=== PATIENT | male | born 1945 | race Caucasian/White ===

== ENCOUNTER 2016-03-19 12:57 | Outpatient (CLI) | payer MEDICARE ==
[2016-03-19 13:32] LABS: INR-International Normal Ratio 1.9; Prothrombin Time 21.9 SEC (12.0-14.7)
== END 2016-03-19 12:58 | disposition home or self-care (01) ==
LOC: MADLABBHPM 12:57
PROVIDERS: ATTEND Family Medicine
DX: Z51.81 Encounter for therapeutic drug level monitoring (principal); Z79.01 Long term (current) use of anticoagulants; Z95.2 Presence of prosthetic heart valve
CPT/HCPCS: 36415; 85610

== ENCOUNTER 2016-03-24 09:44 | Outpatient (CLI) | payer MEDICARE ==
[2016-03-24 10:50] LABS: #Basophils 0.1 thou/uL (0.0-0.2); #Eosinphils 0.3 thou/uL (0.0-0.7); #Monocytes 0.8 thou/uL (0.11-0.59); #Neutrophils 4.7 thou/uL (1.40-6.50); %Basophils 0.9 % (0.0-1.0); %Eosinophils 3.6 % (0.0-10.0); %Lymphocytes 25.4 % (21.0-51.0); %Monocytes 10.4 % (0.0-10.0); %Neutrophils 59.7 % (42.0-75.0); Hemoglobin 12.6 g/dL (14.0-18.0); Mean Corpuscular HGB CONC 34.2 g/dL (32.0-36.0); Mean Corpuscular Hemoglobin 32.7 pg (27.0-31.0); Mean Corpuscular Volume 95.7 fl (80.0-94.0); Mean Platelet Volume 7.2 fL (7.4-10.4); Platelet Count 278 thou/uL (130-400); RBC Distribution Width 12.5 % (11.5-14.5); Red Blood Cell (RBC) Count 3.84 mill/uL (4.70-6.10); White Blood Cell (WBC) Count 7.8 thou/uL (4.8-10.8)
[2016-03-24 12:07] LABS: Anion Gap 17 mmol/L (10-20); Carbon Dioxide 25 mmol/L (23-31); Chloride 102 mmol/L (98-107); Potassium 4.5 mmol/L (3.5-5.1); Sodium 139 mmol/L (136-145)
[2016-03-24 12:08] LABS: ALT (SGPT) 16 U/L (0-55); AST (SGOT) 18 U/L (5-34); Albumin 3.9 g/dL (3.4-4.8); Alkaline Phosphatase 53 U/L (40-150); BUN (Urea Nitrogen) 13 mg/dL (8.4-25.7); Bilirubin, Direct 0.2 mg/dL (0.1-0.3); Bilirubin, Total 0.4 mg/dL (0.2-1.2); Calc. Creatinine Clearance 0 mL/min (70-130); Calcium 8.9 mg/dL (7.8-10.44); Cardiac Risk 4.3 (Less than 4.5); Cholesterol 243 mg/dL (< 200 Desired); Estimated GFR-MDRD 75; Globulin 2.4 g/dL (2.4-3.5); Glucose 103 mg/dL (80-115); HDL Cholesterol 56 mg/dL (>60 Neg Risk); LDL Cholesterol, Calculated 165 mg/dL; Protein, Total 6.3 g/dL (5.8-8.1); Triglycerides 112 mg/dL (Less than 150)
== END 2016-03-24 09:45 | disposition home or self-care (01) ==
LOC: MADLAB 09:44
PROVIDERS: ATTEND Internal Medicine Cardiovascular Disease
DX: E78.2 Mixed hyperlipidemia (principal)
CPT/HCPCS: 36415; 80053; 80061; 82248; 85025

== ENCOUNTER 2016-04-23 13:52 | Outpatient (CLI) | payer MEDICARE ==
[2016-04-23 14:16] LABS: INR-International Normal Ratio 2.5; Prothrombin Time 26.8 SEC (12.0-14.7)
== END 2016-04-23 13:53 | disposition home or self-care (01) ==
LOC: MADLABBHPM 13:52
PROVIDERS: ATTEND Family Medicine
DX: Z51.81 Encounter for therapeutic drug level monitoring (principal); Z79.01 Long term (current) use of anticoagulants; Z95.2 Presence of prosthetic heart valve
CPT/HCPCS: 36415; 85610

== ENCOUNTER 2016-05-20 12:05 | Outpatient (CLI) | payer MEDICARE ==
[2016-05-20 12:29] LABS: #Basophils 0.1 thou/uL (0.0-0.2); #Eosinphils 0.2 thou/uL (0.0-0.7); #Lymphocytes 1.3 thou/uL (1.20-3.40); #Monocytes 0.8 thou/uL (0.11-0.59); #Neutrophils 4.8 thou/uL (1.40-6.50); %Basophils 0.9 % (0.0-1.0); %Eosinophils 3.4 % (0.0-10.0); %Lymphocytes 18.6 % (21.0-51.0); %Monocytes 10.6 % (0.0-10.0); %Neutrophils 66.5 % (42.0-75.0); Hemoglobin 11.6 g/dL (14.0-18.0); Mean Corpuscular HGB CONC 32.8 g/dL (32.0-36.0); Mean Corpuscular Hemoglobin 29.1 pg (27.0-31.0); Mean Corpuscular Volume 88.7 fl (80.0-94.0); Mean Platelet Volume 7.4 fL (7.4-10.4); Platelet Count 244 thou/uL (130-400); RBC Distribution Width 12.8 % (11.5-14.5); Red Blood Cell (RBC) Count 3.98 mill/uL (4.70-6.10); White Blood Cell (WBC) Count 7.2 thou/uL (4.8-10.8)
[2016-05-20 12:33] LABS: INR-International Normal Ratio 1.7; Prothrombin Time 20.3 SEC (12.0-14.7)
[2016-05-20 12:44] LABS: ALT (SGPT) 13 U/L (0-55); AST (SGOT) 18 U/L (5-34); Albumin 3.9 g/dL (3.4-4.8); Alkaline Phosphatase 53 U/L (40-150); Anion Gap 10 mmol/L (10-20); BUN (Urea Nitrogen) 12 mg/dL (8.4-25.7); Bilirubin, Total 0.4 mg/dL (0.2-1.2); Calc. Creatinine Clearance 0 mL/min (70-130); Calcium 9.1 mg/dL (7.8-10.44); Carbon Dioxide 26 mmol/L (23-31); Cardiac Risk 4.3 (Less than 4.5); Chloride 103 mmol/L (98-107); Cholesterol 230 mg/dL (< 200 Desired); Estimated GFR-MDRD 70; Globulin 2.3 g/dL (2.4-3.5); Glucose 103 mg/dL (80-115); HDL Cholesterol 54 mg/dL (>60 Neg Risk); LDL Cholesterol, Calculated 148 mg/dL; Potassium 4.7 mmol/L (3.5-5.1); Protein, Total 6.2 g/dL (5.8-8.1); Sodium 134 mmol/L (136-145); Triglycerides 138 mg/dL (Less than 150)
== END 2016-05-20 12:06 | disposition home or self-care (01) ==
LOC: MADLABBHPM 12:05
PROVIDERS: ATTEND Family Medicine
DX: E78.2 Mixed hyperlipidemia (principal); D64.9 Anemia, unspecified; I10 Essential (primary) hypertension
CPT/HCPCS: 36415; 80053; 80061; 85025; 85610

== ENCOUNTER 2016-06-24 12:57 | Outpatient (CLI) | payer MEDICARE ==
[2016-06-24 13:21] LABS: INR-International Normal Ratio 2.2; Prothrombin Time 24.7 SEC (12.0-14.7)
== END 2016-06-24 12:58 | disposition home or self-care (01) ==
LOC: MADLABBHPM 12:57
PROVIDERS: ATTEND Family Medicine
DX: Z51.81 Encounter for therapeutic drug level monitoring (principal); Z79.01 Long term (current) use of anticoagulants; Z95.2 Presence of prosthetic heart valve
CPT/HCPCS: 36415; 85610

== ENCOUNTER 2016-07-21 09:33 | Outpatient (CLI) | payer MEDICARE ==
[2016-07-21 10:07] LABS: INR-International Normal Ratio 2.5
== END 2016-07-21 09:34 | disposition home or self-care (01) ==
LOC: MADLABBHPM 09:33
PROVIDERS: ATTEND Family Medicine
DX: Z51.81 Encounter for therapeutic drug level monitoring (principal); Z79.01 Long term (current) use of anticoagulants; Z95.2 Presence of prosthetic heart valve
CPT/HCPCS: 36415; 85610

== ENCOUNTER 2016-08-21 08:51 | Outpatient (CLI) | payer MEDICARE ==
[2016-08-21 09:16] LABS: #Basophils 0.1 thou/uL (0.0-0.2); #Eosinphils 0.4 thou/uL (0.0-0.7); #Lymphocytes 1.4 thou/uL (1.20-3.40); #Monocytes 0.9 thou/uL (0.11-0.59); #Neutrophils 4.4 thou/uL (1.40-6.50); %Basophils 0.8 % (0.0-1.0); %Eosinophils 5.6 % (0.0-10.0); %Lymphocytes 19.8 % (21.0-51.0); %Neutrophils 61.8 % (42.0-75.0); Hemoglobin 13.7 g/dL (14.0-18.0); Mean Corpuscular HGB CONC 33.6 g/dL (32.0-36.0); Mean Corpuscular Hemoglobin 30.2 pg (27.0-31.0); Mean Corpuscular Volume 90.1 fl (80.0-94.0); Mean Platelet Volume 7.9 fL (7.4-10.4); Platelet Count 208 thou/uL (130-400); RBC Distribution Width 15.8 % (11.5-14.5); Red Blood Cell (RBC) Count 4.53 mill/uL (4.70-6.10); White Blood Cell (WBC) Count 7.1 thou/uL (4.8-10.8)
[2016-08-21 09:22] LABS: INR-International Normal Ratio 2.6
[2016-08-21 09:30] LABS: ALT (SGPT) 17 U/L (8-55); AST (SGOT) 17 U/L (5-34); Alkaline Phosphatase 55 U/L (40-150); Anion Gap 15 mmol/L (10-20); BUN (Urea Nitrogen) 16 mg/dL (8.4-25.7); Bilirubin, Total 0.6 mg/dL (0.2-1.2); Calc. Creatinine Clearance 0 mL/min (70-130); Calcium 9.2 mg/dL (7.8-10.44); Carbon Dioxide 24 mmol/L (23-31); Cardiac Risk 2.5 (Less than 4.5); Chloride 103 mmol/L (98-107); Cholesterol 158 mg/dl (< 200 Desired); Estimated GFR-MDRD 77; Globulin 2.6 g/dL (2.4-3.5); Glucose 116 mg/dL (80-115); HDL Cholesterol 62 mg/dL (>60 Neg Risk); LDL Cholesterol, Calculated 71 mg/dL; Potassium 4.5 mmol/L (3.5-5.1); Protein, Total 6.6 g/dL (5.8-8.1); Sodium 137 mmol/L (136-145); Triglycerides 126 mg/dL (Less than 150)
== END 2016-08-21 08:52 | disposition home or self-care (01) ==
LOC: MADLABBHPM 08:51
PROVIDERS: ATTEND Family Medicine
DX: E78.2 Mixed hyperlipidemia (principal); I10 Essential (primary) hypertension; Z95.2 Presence of prosthetic heart valve; Z79.01 Long term (current) use of anticoagulants
CPT/HCPCS: 36415; 80053; 80061; 85025; 85610

== ENCOUNTER 2016-09-24 08:07 | Outpatient (CLI) | payer MEDICARE ==
[2016-09-24 09:54] LABS: INR-International Normal Ratio 3.2; Prothrombin Time 32.3 SEC (12.0-14.7)
== END 2016-09-24 08:08 | disposition home or self-care (01) ==
LOC: MADLABBHPM 08:07
PROVIDERS: ATTEND Family Medicine
DX: Z51.81 Encounter for therapeutic drug level monitoring (principal); Z79.01 Long term (current) use of anticoagulants
CPT/HCPCS: 36415; 85610

== ENCOUNTER 2016-10-21 08:24 | Outpatient (CLI) | payer MEDICARE ==
[2016-10-21 09:28] LABS: Prothrombin Time 23.2 SEC (12.0-14.7)
== END 2016-10-21 08:25 | disposition home or self-care (01) ==
LOC: MADLABBHPM 08:24
PROVIDERS: ATTEND Family Medicine
DX: Z51.81 Encounter for therapeutic drug level monitoring (principal); Z79.01 Long term (current) use of anticoagulants
CPT/HCPCS: 36415; 85610

== ENCOUNTER 2016-11-19 10:59 | Outpatient (CLI) | payer MEDICARE ==
[2016-11-19 11:14] LABS: #Basophils 0.1 thou/uL (0.0-0.2); #Eosinphils 0.3 thou/uL (0.0-0.7); #Lymphocytes 1.5 thou/uL (1.20-3.40); #Monocytes 0.9 thou/uL (0.11-0.59); #Neutrophils 3.9 thou/uL (1.40-6.50); %Eosinophils 4.2 % (0.0-10.0); %Lymphocytes 22.5 % (21.0-51.0); %Monocytes 13.5 % (0.0-10.0); %Neutrophils 58.8 % (42.0-75.0); Hemoglobin 13.4 g/dL (14.0-18.0); Mean Corpuscular Hemoglobin 30.8 pg (27.0-31.0); Mean Corpuscular Volume 93.4 fl (80.0-94.0); Mean Platelet Volume 7.2 fL (7.4-10.4); Platelet Count 253 thou/uL (130-400); RBC Distribution Width 11.3 % (11.5-14.5); Red Blood Cell (RBC) Count 4.35 mill/uL (4.70-6.10); White Blood Cell (WBC) Count 6.6 thou/uL (4.8-10.8)
[2016-11-19 11:31] LABS: INR-International Normal Ratio 2.2; Prothrombin Time 25.5 SEC (12.0-14.7)
[2016-11-19 11:52] LABS: ALT (SGPT) 18 U/L (8-55); AST (SGOT) 19 U/L (5-34); Albumin 3.9 g/dL (3.4-4.8); Alkaline Phosphatase 65 U/L (40-150); Anion Gap 16 mmol/L (10-20); BUN (Urea Nitrogen) 18 mg/dL (8.4-25.7); Bilirubin, Total 0.5 mg/dL (0.2-1.2); Calc. Creatinine Clearance 0 mL/min (70-130); Calcium 9.4 mg/dL (7.8-10.44); Carbon Dioxide 23 mmol/L (23-31); Cardiac Risk 3.6 (Less than 4.5); Chloride 102 mmol/L (98-107); Cholesterol 189 mg/dl (< 200 Desired); Estimated GFR-MDRD 72; Globulin 2.9 g/dL (2.4-3.5); Glucose 116 mg/dL (80-115); HDL Cholesterol 52 mg/dL (>60 Neg Risk); LDL Cholesterol, Calculated 118 mg/dL; Potassium 4.5 mmol/L (3.5-5.1); Protein, Total 6.8 g/dL (5.8-8.1); Sodium 136 mmol/L (136-145); Triglycerides 97 mg/dL (Less than 150)
== END 2016-11-19 11:00 | disposition home or self-care (01) ==
LOC: MADLABBHPM 10:59
PROVIDERS: ATTEND Family Medicine
DX: Z51.81 Encounter for therapeutic drug level monitoring (principal); E78.2 Mixed hyperlipidemia; I10 Essential (primary) hypertension; Z79.01 Long term (current) use of anticoagulants
CPT/HCPCS: 36415; 80053; 80061; 85025; 85610

== ENCOUNTER 2016-12-31 09:57 | Outpatient (CLI) | payer MEDICARE ==
[2016-12-31 10:10] LABS: #Eosinphils 0.3 thou/uL (0.0-0.7); #Lymphocytes 1.1 thou/uL (1.20-3.40); #Monocytes 0.8 thou/uL (0.11-0.59); #Neutrophils 5.1 thou/uL (1.40-6.50); %Basophils 0.6 % (0.0-1.0); %Eosinophils 3.5 % (0.0-10.0); %Lymphocytes 14.6 % (21.0-51.0); %Monocytes 11.6 % (0.0-10.0); %Neutrophils 69.7 % (42.0-75.0); Mean Corpuscular HGB CONC 31.1 g/dL (32.0-36.0); Mean Corpuscular Hemoglobin 29.3 pg (27.0-31.0); Mean Corpuscular Volume 94.3 fl (80.0-94.0); Mean Platelet Volume 6.2 fL (7.4-10.4); Platelet Count 366 thou/uL (130-400); RBC Distribution Width 15.6 % (11.5-14.5); Red Blood Cell (RBC) Count 4.42 mill/uL (4.70-6.10); White Blood Cell (WBC) Count 7.2 thou/uL (4.8-10.8)
[2016-12-31 10:23] LABS: INR-International Normal Ratio 2.4; Prothrombin Time 27.4 SEC (12.0-14.7)
== END 2016-12-31 09:58 | disposition home or self-care (01) ==
LOC: MADLABBHPM 09:57
PROVIDERS: ATTEND Family Medicine
DX: Z51.81 Encounter for therapeutic drug level monitoring (principal); D62 Acute posthemorrhagic anemia; Z79.01 Long term (current) use of anticoagulants
CPT/HCPCS: 36415; 85025; 85610

== ENCOUNTER 2017-01-22 09:01 | Outpatient (CLI) | payer MEDICARE ==
[2017-01-22 09:38] LABS: INR-International Normal Ratio 2.8; Prothrombin Time 31.1 SEC (12.0-14.7)
[2017-01-22 10:04] LABS: #Basophils 0.1 thou/uL (0.0-0.2); #Eosinphils 0.2 thou/uL (0.0-0.7); #Lymphocytes 1.1 thou/uL (1.20-3.40); #Monocytes 0.7 thou/uL (0.11-0.59); #Neutrophils 3.1 thou/uL (1.40-6.50); %Basophils 1.1 % (0.0-1.0); %Eosinophils 4.5 % (0.0-10.0); %Lymphocytes 20.9 % (21.0-51.0); %Monocytes 12.6 % (0.0-10.0); %Neutrophils 60.8 % (42.0-75.0); Hemoglobin 13.2 g/dL (14.0-18.0); Mean Corpuscular HGB CONC 32.4 g/dL (32.0-36.0); Mean Corpuscular Volume 92.6 fL (80.0-94.0); Mean Platelet Volume 6.9 fL (7.4-10.4); Platelet Count 251 thou/uL (130-400); RBC Distribution Width 14.7 % (11.5-14.5); Red Blood Cell (RBC) Count 4.39 mill/uL (4.70-6.10); White Blood Cell (WBC) Count 5.2 thou/uL (4.8-10.8)
== END 2017-01-22 09:02 | disposition home or self-care (01) ==
LOC: MADLABBHPM 09:01
PROVIDERS: ATTEND Family Medicine
DX: Z51.81 Encounter for therapeutic drug level monitoring (principal); D62 Acute posthemorrhagic anemia; Z79.01 Long term (current) use of anticoagulants
CPT/HCPCS: 36415; 85025; 85610

== ENCOUNTER 2017-02-18 10:07 | Outpatient (CLI) | payer MEDICARE ==
[2017-02-18 10:40] LABS: Prothrombin Time 32.7 SEC (12.0-14.7)
[2017-02-18 10:52] LABS: ALT (SGPT) 19 U/L (8-55); AST (SGOT) 18 U/L (5-34); Albumin 4.1 g/dL (3.4-4.8); Alkaline Phosphatase 61 U/L (40-150); Anion Gap 15 mmol/L (10-20); BUN (Urea Nitrogen) 14 mg/dL (8.4-25.7); Bilirubin, Direct 0.2 mg/dL (0.1-0.3); Bilirubin, Total 0.5 mg/dL (0.2-1.2); Calc. Creatinine Clearance 0 mL/min (70-130); Calcium 9.3 mg/dL (7.8-10.44); Carbon Dioxide 26 mmol/L (23-31); Cardiac Risk 2.8 (Less than 4.5); Chloride 100 mmol/L (98-107); Cholesterol 184 mg/dl (< 200 Desired); Estimated GFR-MDRD 86; Glucose 104 mg/dL (80-115); HDL Cholesterol 66 mg/dL (>60 Neg Risk); LDL Cholesterol, Calculated 84 mg/dL; Potassium 4.6 mmol/L (3.5-5.1); Sodium 136 mmol/L (136-145); Triglycerides 168 mg/dL (Less than 150)
== END 2017-02-18 10:08 | disposition home or self-care (01) ==
LOC: MADLABBHPM 10:07
PROVIDERS: ATTEND Internal Medicine Cardiovascular Disease
DX: I25.10 Atherosclerotic heart disease of native coronary artery without angina pectoris (principal)
CPT/HCPCS: 36415; 80048; 80061; 80076; 85610

== ENCOUNTER 2017-03-05 10:46 | Outpatient (CLI) | payer MEDICARE ==
[2017-03-05 11:11] LABS: INR-International Normal Ratio 1.7; Prothrombin Time 20.2 SEC (12.0-14.7)
== END 2017-03-05 10:47 | disposition home or self-care (01) ==
LOC: MADLABBHPM 10:46
PROVIDERS: ATTEND Family Medicine
DX: Z51.81 Encounter for therapeutic drug level monitoring (principal); Z79.01 Long term (current) use of anticoagulants
CPT/HCPCS: 36415; 85610

== ENCOUNTER 2017-03-23 13:32 | Outpatient (CLI) | payer MEDICARE ==
[2017-03-23 14:24] LABS: INR-International Normal Ratio 2.6; Prothrombin Time 28.9 SEC (12.0-14.7)
== END 2017-03-23 13:33 | disposition home or self-care (01) ==
LOC: MADLAB 13:32
PROVIDERS: ATTEND Family Medicine
DX: Z51.81 Encounter for therapeutic drug level monitoring (principal); Z79.01 Long term (current) use of anticoagulants
CPT/HCPCS: 36415; 85610

== ENCOUNTER 2017-04-20 13:38 | Outpatient (CLI) | payer MEDICARE ==
[2017-04-20 14:34] LABS: INR-International Normal Ratio 1.9; Prothrombin Time 21.9 SEC (12.0-14.7)
== END 2017-04-20 13:39 | disposition home or self-care (01) ==
LOC: MADLABBHPM 13:38
PROVIDERS: ATTEND Family Medicine
DX: Z51.81 Encounter for therapeutic drug level monitoring (principal); Z79.01 Long term (current) use of anticoagulants
CPT/HCPCS: 36415; 85610

== ENCOUNTER 2017-04-27 14:37 | Outpatient (CLI) | payer MEDICARE, OTHER ==
--- NOTE | 2017-04-27 15:19 | CT ---
CT BRAIN WITHOUT CONTRAST: History: Fall, left frontal headache. No loss of consciousness. FINDINGS: Comparison is made with exam of 02-14-08. No evidence of infarct, hemorrhage, midline shift, or abnormal extraaxial fluid collections are seen. The ventricular size is stable and the basal cisterns patent. The bony calvarium is intact. Visualiz ed paranasal sinuses and mastoid air cells are well aerated. IMPRESSION: No CT evidence of acute intracranial process. POS: [facility]
== END 2017-04-27 14:38 | disposition home or self-care (01) ==
LOC: MADCT 14:37
PROVIDERS: ATTEND Family Medicine
DX: G44.319 Acute post-traumatic headache, not intractable (principal); Z79.01 Long term (current) use of anticoagulants
CPT/HCPCS: 70450

== ENCOUNTER 2017-05-07 08:43 | Outpatient (CLI) | payer MEDICARE ==
[2017-05-07 10:29] LABS: INR-International Normal Ratio 2.9
== END 2017-05-07 08:44 | disposition home or self-care (01) ==
LOC: MADLABBHPM 08:43
PROVIDERS: ATTEND Family Medicine
DX: Z51.81 Encounter for therapeutic drug level monitoring (principal); Z79.01 Long term (current) use of anticoagulants
CPT/HCPCS: 36415; 85610

== ENCOUNTER 2017-06-08 09:13 | Outpatient (CLI) | payer MEDICARE, OTHER ==
[2017-06-08 10:10] LABS: Hemoglobin 12.5 g/dL (14.0-18.0); Manual Diff?? YES; Mean Corpuscular HGB CONC 32.8 g/dL (32.0-36.0); Mean Corpuscular Hemoglobin 31.8 pg (27.0-31.0); Mean Platelet Volume 7.3 fL (7.4-10.4); Platelet Count 232 thou/uL (130-400); Red Blood Cell (RBC) Count 3.93 mill/uL (4.70-6.10); White Blood Cell (WBC) Count 5.4 thou/uL (4.8-10.8)
[2017-06-08 10:19] LABS: ALT (SGPT) 16 U/L (8-55); AST (SGOT) 18 U/L (5-34); Albumin 4.2 g/dL (3.4-4.8); Alkaline Phosphatase 58 U/L (40-150); Anion Gap 14 mmol/L (10-20); BUN (Urea Nitrogen) 22 mg/dL (8.4-25.7); Bilirubin, Total 0.4 mg/dL (0.2-1.2); Calc. Creatinine Clearance 0 mL/min (70-130); Calcium 9.3 mg/dL (7.8-10.44); Carbon Dioxide 22 mmol/L (23-31); Cardiac Risk 2.4 (Less than 4.5); Chloride 101 mmol/L (98-107); Cholesterol 139 mg/dl (< 200 Desired); Estimated GFR-MDRD 83; Globulin 2.5 g/dL (2.4-3.5); Glucose 112 mg/dL (80-115); HDL Cholesterol 59 mg/dL (>60 Neg Risk); LDL Cholesterol, Calculated 65 mg/dL; Potassium 4.4 mmol/L (3.5-5.1); Protein, Total 6.7 g/dL (5.8-8.1); Sodium 133 mmol/L (136-145); Triglycerides 77 mg/dL (Less than 150)
[2017-06-08 10:21] LABS: Band 2 % (5-11); Eosinophils 6 % (0-10); Lymphocytes 24 % (21-51); MDiff Complete? YES; Monocytes 17 % (0-10); Neutrophil 51 % (42-75)
[2017-06-08 10:22] LABS: Anisocytosis SLIGHT = 6-15 cells (100X) (0-5/hpf); PLT Morphology Comment Appears Adequate
[2017-06-08 10:30] LABS: INR-International Normal Ratio 2.4; Prothrombin Time 26.8 SEC (12.0-14.7)
[2017-06-08 20:33] LABS: Iron 225 ug/dL (65-175)
== END 2017-06-08 09:14 | disposition home or self-care (01) ==
LOC: MADLABBHPM 09:13
PROVIDERS: ATTEND Family Medicine
DX: E78.2 Mixed hyperlipidemia (principal); D64.9 Anemia, unspecified; I10 Essential (primary) hypertension
CPT/HCPCS: 36415; 80053; 80061; 82728; 83540; 85025; 85610

== ENCOUNTER 2017-07-07 08:56 | Outpatient (CLI) | payer MEDICARE, OTHER ==
[2017-07-07 10:41] LABS: Prothrombin Time 32.7 SEC (12.0-14.7)
[2017-07-07 10:49] LABS: Anion Gap 16 mmol/L (10-20); BUN (Urea Nitrogen) 15 mg/dL (8.4-25.7); Calc. Creatinine Clearance 0 mL/min (70-130); Calcium 9.4 mg/dL (7.8-10.44); Carbon Dioxide 22 mmol/L (23-31); Chloride 101 mmol/L (98-107); Estimated GFR-MDRD Greater than 90; Glucose 104 mg/dL (80-115); Potassium 4.6 mmol/L (3.5-5.1); Sodium 134 mmol/L (136-145)
[2017-07-07 13:45] LABS: Eosinophils 1 % (0-10); Hemoglobin 12.7 g/dL (14.0-18.0); Lymphocytes 22 % (21-51); MDiff Complete? YES; Mean Corpuscular HGB CONC 33.8 g/dL (32.0-36.0); Mean Corpuscular Hemoglobin 30.9 pg (27.0-31.0); Mean Corpuscular Volume 91.4 fl (80.0-94.0); Mean Platelet Volume 6.6 fL (7.4-10.4); Monocytes 11 % (0-10); Myelocyte 1 % (0-0); Neutrophil 65 % (42-75); PLT Morphology Comment Appears Adequate; Platelet Count 222 thou/uL (130-400); RBC Distribution Width 11.1 % (11.5-14.5); Red Blood Cell (RBC) Count 4.12 mill/uL (4.70-6.10); White Blood Cell (WBC) Count 6.3 thou/uL (4.8-10.8)
[2017-07-07 17:07] LABS: Iron 79 ug/dL (65-175); Iron Binding Capacity, Total 413 mcg/dL (261-462)
== END 2017-07-07 08:57 | disposition home or self-care (01) ==
LOC: MADLABBHPM 08:56
PROVIDERS: ATTEND Family Medicine
DX: Z51.81 Encounter for therapeutic drug level monitoring (principal); D64.9 Anemia, unspecified; E87.1 Hypo-osmolality and hyponatremia; I10 Essential (primary) hypertension; Z79.01 Long term (current) use of anticoagulants
CPT/HCPCS: 36415; 80048; 83540; 83550; 85025; 85610

== ENCOUNTER 2017-08-05 09:30 | Outpatient (CLI) | payer MEDICARE, OTHER ==
[2017-08-05 10:07] LABS: INR-International Normal Ratio 1.7; Prothrombin Time 20.4 SEC (12.0-14.7)
== END 2017-08-05 09:31 | disposition home or self-care (01) ==
LOC: MADLABBHPM 09:30
PROVIDERS: ATTEND Family Medicine
DX: Z51.81 Encounter for therapeutic drug level monitoring (principal); Z79.01 Long term (current) use of anticoagulants
CPT/HCPCS: 36415; 85610

== ENCOUNTER 2017-08-13 09:14 | Outpatient (CLI) | payer MEDICARE, OTHER ==
[2017-08-13 09:47] LABS: INR-International Normal Ratio 2.4; Prothrombin Time 26.8 SEC (12.0-14.7)
== END 2017-08-13 09:15 | disposition home or self-care (01) ==
LOC: MADLABBHPM 09:14
PROVIDERS: ATTEND Family Medicine
DX: Z51.81 Encounter for therapeutic drug level monitoring (principal); Z79.01 Long term (current) use of anticoagulants
CPT/HCPCS: 36415; 85610

== ENCOUNTER 2017-09-01 10:09 | Outpatient (CLI) | payer MEDICARE, OTHER ==
[2017-09-01 11:24] LABS: #Basophils 0.1 thou/uL (0.0-0.2); #Eosinphils 0.3 thou/uL (0.0-0.7); #Lymphocytes 1.4 thou/uL (1.20-3.40); #Monocytes 0.8 thou/uL (0.11-0.59); #Neutrophils 4.6 thou/uL (1.40-6.50); %Basophils 0.8 % (0.0-1.0); %Lymphocytes 19.6 % (21.0-51.0); %Monocytes 11.2 % (0.0-10.0); %Neutrophils 64.5 % (42.0-75.0); Hemoglobin 9.1 g/dL (14.0-18.0); Mean Corpuscular HGB CONC 31.4 g/dL (32.0-36.0); Mean Corpuscular Hemoglobin 25.3 pg (27.0-31.0); Mean Corpuscular Volume 80.6 fL (78.0-98.0); Mean Platelet Volume 5.7 fL (7.4-10.4); Platelet Count 321 thou/uL (130-400); RBC Distribution Width 14.2 % (11.5-14.5); Red Blood Cell (RBC) Count 3.59 mill/uL (4.70-6.10); White Blood Cell (WBC) Count 7.1 thou/uL (4.8-10.8)
--- NOTE | 2017-09-01 11:36 | RAD ---
TWO VIEWS CHEST: Comparison: 12-16-16 History: Anemia, dyspnea. FINDINGS: Stable left sided transvenous pacemaker. There is atherosclerosis of the aorta. Normal cardiac silhou ette. The pulmonary vessels and hilum are normal. Persistent blunting of the right costophrenic angle . Chronic change in the lung bases are noted. There is no pneumothorax. No osseous abnormality. Sternotomy wires and prosthetic heart valve are also redemonstrated. IMPRESSION: No acute cardiopulmonary process. POS: [facility]
[2017-09-01 13:22] LABS: INR-International Normal Ratio 2.6; Prothrombin Time 29.1 SEC (12.0-14.7)
== END 2017-09-01 10:10 | disposition home or self-care (01) ==
LOC: MADLABBHPM 10:09
PROVIDERS: ATTEND Family Medicine
DX: R06.09 Other forms of dyspnea (principal); R53.83 Other fatigue; D64.9 Anemia, unspecified; Z79.01 Long term (current) use of anticoagulants; Z95.2 Presence of prosthetic heart valve
CPT/HCPCS: 36415; 71046; 82728; 83540; 85025; 85610; 93005; 93010

== ENCOUNTER 2017-10-09 08:07 | Outpatient (CLI) | payer MEDICARE, OTHER ==
[2017-10-09 08:53] LABS: INR-International Normal Ratio 1.6; Prothrombin Time 19.1 SEC (12.0-14.7)
== END 2017-10-09 08:08 | disposition home or self-care (01) ==
LOC: MADLAB 08:07
PROVIDERS: ATTEND Family Medicine
DX: Z51.81 Encounter for therapeutic drug level monitoring (principal); Z79.01 Long term (current) use of anticoagulants; Z95.2 Presence of prosthetic heart valve
CPT/HCPCS: 36415; 85610

== ENCOUNTER 2017-10-15 09:15 | Outpatient (CLI) | payer MEDICARE, OTHER ==
[2017-10-15 09:46] LABS: INR-International Normal Ratio 2.3; Prothrombin Time 24.9 SEC (12.0-14.7)
== END 2017-10-15 09:16 | disposition home or self-care (01) ==
LOC: MADLAB 09:15
PROVIDERS: ATTEND Family Medicine
DX: Z51.81 Encounter for therapeutic drug level monitoring (principal); D50.0 Iron deficiency anemia secondary to blood loss (chronic); Z95.2 Presence of prosthetic heart valve; Z79.01 Long term (current) use of anticoagulants
CPT/HCPCS: 36415; 85014; 85018; 85610

== ENCOUNTER 2017-11-10 10:25 | Outpatient (CLI) | payer MEDICARE, OTHER ==
[2017-11-10 10:46] LABS: INR-International Normal Ratio 2.8; Prothrombin Time 29.4 SEC (12.0-14.7)
== END 2017-11-10 10:26 | disposition home or self-care (01) ==
LOC: MADLABBHPM 10:25
PROVIDERS: ATTEND Family Medicine
DX: Z51.81 Encounter for therapeutic drug level monitoring (principal); Z79.01 Long term (current) use of anticoagulants; Z95.2 Presence of prosthetic heart valve
CPT/HCPCS: 36415; 85610

== ENCOUNTER 2017-12-07 08:55 | Outpatient (CLI) | payer MEDICARE, OTHER ==
[2017-12-07 09:25] LABS: #Basophils 0.1 thou/uL (0.0-0.2); #Eosinphils 0.2 thou/uL (0.0-0.7); #Lymphocytes 1.1 thou/uL (1.20-3.40); #Monocytes 0.9 thou/uL (0.11-0.59); #Neutrophils 4.5 thou/uL (1.40-6.50); %Basophils 1.4 % (0.0-1.0); %Eosinophils 2.9 % (0.0-10.0); %Lymphocytes 16.3 % (21.0-51.0); %Monocytes 12.9 % (0.0-10.0); %Neutrophils 66.5 % (42.0-75.0); Hemoglobin 12.7 g/dL (14.0-18.0); Mean Corpuscular HGB CONC 33.2 g/dL (32.0-36.0); Mean Corpuscular Hemoglobin 29.2 pg (27.0-31.0); Mean Corpuscular Volume 87.8 fL (78.0-98.0); Mean Platelet Volume 6.9 fL (7.4-10.4); Platelet Count 272 thou/uL (130-400); RBC Distribution Width 15.4 % (11.5-14.5); Red Blood Cell (RBC) Count 4.36 mill/uL (4.70-6.10); White Blood Cell (WBC) Count 6.7 thou/uL (4.8-10.8)
[2017-12-07 09:29] LABS: INR-International Normal Ratio 2.6; Prothrombin Time 28.1 SEC (12.0-14.7)
== END 2017-12-07 08:56 | disposition home or self-care (01) ==
LOC: MADLABBHPM 08:55
PROVIDERS: ATTEND Family Medicine
DX: D64.9 Anemia, unspecified (principal)
CPT/HCPCS: 36415; 82728; 83540; 85025; 85610

== ENCOUNTER 2017-12-23 09:17 | Outpatient (CLI) | payer MEDICARE, OTHER ==
--- NOTE | 2017-12-23 11:15 | RAD ---
TWO VIEW CHEST: Indication: COPD. Comparison: 09-01-17 FINDINGS: There is a stable appearance to the cardiac silhouette. Vascular prominence and interstitial opacitie s remain. There is stable blunting to the right costophrenic sulcus. Left side dual-lead cardiac paci ng device remains in place. Vascular calcification and prior sternotomy again noted. Chest otherwise similar in appearance. IMPRESSION: 1. Stable chest with evidence to indicate CHF and edema. 2. Persistent pleural based density at the inferior right hemithorax. POS: [facility]
== END 2017-12-23 09:18 | disposition home or self-care (01) ==
LOC: MADRAD 09:17
PROVIDERS: ATTEND Internal Medicine Pulmonary Disease
DX: J44.9 Chronic obstructive pulmonary disease, unspecified (principal); I50.9 Heart failure, unspecified; R60.9 Edema, unspecified
CPT/HCPCS: 71046

== ENCOUNTER 2018-01-12 07:59 | Outpatient (CLI) | payer MEDICARE, OTHER ==
[2018-01-12 08:42] LABS: #Basophils 0.1 thou/uL (0.0-0.2); #Eosinphils 0.2 thou/uL (0.0-0.7); #Lymphocytes 1.3 thou/uL (1.20-3.40); #Monocytes 0.8 thou/uL (0.11-0.59); #Neutrophils 3.5 thou/uL (1.40-6.50); %Basophils 1.2 % (0.0-1.0); %Eosinophils 3.3 % (0.0-10.0); %Lymphocytes 21.8 % (21.0-51.0); %Monocytes 13.3 % (0.0-10.0); %Neutrophils 60.4 % (42.0-75.0); Hemoglobin 14.3 g/dL (14.0-18.0); Mean Corpuscular HGB CONC 32.9 g/dL (32.0-36.0); Mean Corpuscular Hemoglobin 30.2 pg (27.0-31.0); Mean Corpuscular Volume 91.6 fL (78.0-98.0); Mean Platelet Volume 7.3 fL (7.4-10.4); Platelet Count 228 thou/uL (130-400); RBC Distribution Width 13.5 % (11.5-14.5); Red Blood Cell (RBC) Count 4.74 mill/uL (4.70-6.10); White Blood Cell (WBC) Count 5.9 thou/uL (4.8-10.8)
[2018-01-12 08:52] LABS: INR-International Normal Ratio 2.5; Prothrombin Time 26.8 SEC (12.0-14.7)
[2018-01-12 08:57] LABS: ALT (SGPT) 17 U/L (8-55); AST (SGOT) 19 U/L (5-34); Albumin 4.1 g/dL (3.4-4.8); Alkaline Phosphatase 58 U/L (40-150); Anion Gap 15 mmol/L (10-20); BUN (Urea Nitrogen) 12 mg/dL (8.4-25.7); Bilirubin, Direct 0.3 mg/dL (0.1-0.3); Bilirubin, Total 0.6 mg/dL (0.2-1.2); Calc. Creatinine Clearance 0 mL/min (70-130); Calcium 9.7 mg/dL (7.8-10.44); Carbon Dioxide 22 mmol/L (23-31); Cardiac Risk 2.6 (Less than 4.5); Chloride 101 mmol/L (98-107); Cholesterol 158 mg/dl (< 200 Desired); Estimated GFR-MDRD 80; Globulin 2.6 g/dL (2.4-3.5); Glucose 105 mg/dL (80-115); HDL Cholesterol 61 mg/dL (>60 Neg Risk); LDL Cholesterol, Calculated 80 mg/dL; Potassium 4.7 mmol/L (3.5-5.1); Protein, Total 6.7 g/dL (5.8-8.1); Sodium 133 mmol/L (136-145); Triglycerides 83 mg/dL (Less than 150)
== END 2018-01-12 08:00 | disposition home or self-care (01) ==
LOC: MADLABBHPM 07:59
PROVIDERS: ATTEND Internal Medicine Cardiovascular Disease
DX: E78.2 Mixed hyperlipidemia (principal); I10 Essential (primary) hypertension; D64.9 Anemia, unspecified; E61.1 Iron deficiency
CPT/HCPCS: 36415; 80053; 80061; 82248; 82728; 83540; 85025; 85610

== ENCOUNTER 2018-02-11 10:55 | Outpatient (CLI) | payer MEDICARE, OTHER ==
[2018-02-11 11:45] LABS: INR-International Normal Ratio 2.9; Prothrombin Time 30.1 SEC (12.0-14.7)
== END 2018-02-11 10:56 | disposition home or self-care (01) ==
LOC: MADLABBHPM 10:55
PROVIDERS: ATTEND Family Medicine
DX: Z51.81 Encounter for therapeutic drug level monitoring (principal); Z79.01 Long term (current) use of anticoagulants; Z95.2 Presence of prosthetic heart valve
CPT/HCPCS: 36415; 85610

== ENCOUNTER 2018-03-15 09:20 | Outpatient (CLI) | payer MEDICARE, OTHER | END 2018-03-15 09:21 | disposition home or self-care (01) | LOC: MADLABBHPM 09:20 | PROVIDERS: ATTEND Family Medicine | DX: Z51.81 Encounter for therapeutic drug level monitoring (principal); Z95.2 Presence of prosthetic heart valve; Z79.01 Long term (current) use of anticoagulants | CPT/HCPCS: 36415; 85610 ==

== ENCOUNTER 2018-04-26 11:12 | Outpatient (CLI) | payer MEDICARE, OTHER ==
[2018-04-26 11:38] LABS: INR-International Normal Ratio 2.5; Prothrombin Time 27.3 SEC (12.0-14.7)
== END 2018-04-26 11:13 | disposition home or self-care (01) ==
LOC: MADLABBHPM 11:12
PROVIDERS: ATTEND Family Medicine
DX: Z51.81 Encounter for therapeutic drug level monitoring (principal); Z95.2 Presence of prosthetic heart valve; Z79.01 Long term (current) use of anticoagulants
CPT/HCPCS: 36415; 85610

== ENCOUNTER 2018-05-20 10:45 | Outpatient (CLI) | payer MEDICARE, OTHER ==
[2018-05-20 11:33] LABS: INR-International Normal Ratio 2.7; Prothrombin Time 28.3 SEC (12.0-14.7)
[2018-05-20 11:35] LABS: ALT (SGPT) 15 U/L (8-55); AST (SGOT) 19 U/L (5-34); Albumin 4.3 g/dL (3.4-4.8); Alkaline Phosphatase 56 U/L (40-150); Anion Gap 19 mmol/L (10-20); BUN (Urea Nitrogen) 16 mg/dL (8.4-25.7); Bilirubin, Total 0.4 mg/dL (0.2-1.2); Calc. Creatinine Clearance 0 mL/min (70-130); Calcium 9.1 mg/dL (7.8-10.44); Carbon Dioxide 19 mmol/L (23-31); Cardiac Risk 2.2 (Less than 4.5); Chloride 100 mmol/L (98-107); Cholesterol 165 mg/dl (< 200 Desired); Estimated GFR-MDRD 82; Globulin 2.5 g/dL (2.4-3.5); Glucose 81 mg/dL (83-110); HDL Cholesterol 76 mg/dL (>60 Neg Risk); LDL Cholesterol, Calculated 71 mg/dL; Potassium 4.7 mmol/L (3.5-5.1); Protein, Total 6.8 g/dL (5.8-8.1); Sodium 133 mmol/L (136-145); Triglycerides 90 mg/dL (Less than 150)
[2018-05-20 11:39] LABS: #Basophils 0.1 thou/uL (0.0-0.2); #Eosinphils 0.2 thou/uL (0.0-0.7); #Lymphocytes 1.1 thou/uL (1.20-3.40); #Monocytes 0.6 thou/uL (0.11-0.59); #Neutrophils 3.5 thou/uL (1.40-6.50); %Basophils 1.5 % (0.0-1.0); %Lymphocytes 20.4 % (21.0-51.0); %Monocytes 11.1 % (0.0-10.0); Hemoglobin 13.3 g/dL (14.0-18.0); Mean Corpuscular HGB CONC 33.3 g/dL (32.0-36.0); Mean Corpuscular Hemoglobin 31.3 pg (27.0-31.0); Mean Corpuscular Volume 93.9 fL (78.0-98.0); Mean Platelet Volume 7.1 fL (7.4-10.4); Platelet Count 238 thou/uL (130-400); RBC Distribution Width 11.4 % (11.5-14.5); Red Blood Cell (RBC) Count 4.25 mill/uL (4.70-6.10); White Blood Cell (WBC) Count 5.5 thou/uL (4.8-10.8)
[2018-05-20 17:00] LABS: Iron 92 ug/dL (65-175); Iron Binding Capacity, Total 380 mcg/dL (261-462)
== END 2018-05-20 10:46 | disposition home or self-care (01) ==
LOC: MADLABBHPM 10:45
PROVIDERS: ATTEND Family Medicine
DX: Z51.81 Encounter for therapeutic drug level monitoring (principal); E61.1 Iron deficiency; D64.9 Anemia, unspecified; E78.2 Mixed hyperlipidemia; I10 Essential (primary) hypertension; Z79.01 Long term (current) use of anticoagulants
CPT/HCPCS: 36415; 80053; 80061; 82728; 83540; 83550; 85025; 85610

== ENCOUNTER 2018-06-22 09:30 | Outpatient (CLI) | payer MEDICARE, OTHER ==
[2018-06-22 10:07] LABS: INR-International Normal Ratio 2.1; Prothrombin Time 23.6 SEC (12.0-14.7)
== END 2018-06-22 09:31 | disposition home or self-care (01) ==
LOC: MADLABBHPM 09:30
PROVIDERS: ATTEND Family Medicine
DX: Z51.81 Encounter for therapeutic drug level monitoring (principal); Z79.01 Long term (current) use of anticoagulants
CPT/HCPCS: 36415; 85610

== ENCOUNTER 2018-07-21 10:08 | Outpatient (CLI) | payer MEDICARE, OTHER ==
[2018-07-21 10:42] LABS: Prothrombin Time 30.9 SEC (12.0-14.7)
== END 2018-07-21 10:09 | disposition home or self-care (01) ==
LOC: MADLABBHPM 10:08
PROVIDERS: ATTEND Family Medicine
DX: Z51.81 Encounter for therapeutic drug level monitoring (principal); Z79.01 Long term (current) use of anticoagulants
CPT/HCPCS: 36415; 85610

== ENCOUNTER 2018-08-23 10:38 | Outpatient (CLI) | payer MEDICARE, OTHER ==
[2018-08-23 11:06] LABS: INR-International Normal Ratio 2.5; Prothrombin Time 27.4 SEC (12.0-14.7)
[2018-08-23 11:15] LABS: Cardiac Risk 2.7 (Less than 4.5)
== END 2018-08-23 10:39 | disposition home or self-care (01) ==
LOC: MADLABBHPM 10:38
PROVIDERS: ATTEND Internal Medicine Cardiovascular Disease
DX: E78.2 Mixed hyperlipidemia (principal); E66.8 Other obesity; Z95.2 Presence of prosthetic heart valve
CPT/HCPCS: 36415; 80061; 85610

== ENCOUNTER 2018-10-19 11:59 | Outpatient (CLI) | payer MEDICARE, OTHER ==
[2018-10-19 12:27] LABS: INR-International Normal Ratio 3.3; Prothrombin Time 33.6 SEC (12.0-14.7)
== END 2018-10-19 12:00 | disposition home or self-care (01) ==
LOC: MADLABBHPM 11:59
PROVIDERS: ATTEND Family Medicine
DX: Z51.81 Encounter for therapeutic drug level monitoring (principal); Z79.01 Long term (current) use of anticoagulants
CPT/HCPCS: 36415; 85610

== ENCOUNTER 2018-11-23 08:30 | Outpatient (CLI) | payer MEDICARE, OTHER ==
[2018-11-23 09:11] LABS: #Basophils 0.1 thou/uL (0.0-0.2); #Eosinphils 0.4 thou/uL (0.0-0.7); #Monocytes 0.6 thou/uL (0.11-0.59); #Neutrophils 3.4 thou/uL (1.40-6.50); %Eosinophils 7.9 % (0.0-10.0); %Lymphocytes 18.4 % (21.0-51.0); %Monocytes 11.4 % (0.0-10.0); %Neutrophils 61.3 % (42.0-75.0); Hemoglobin 12.9 g/dL (14.0-18.0); Mean Corpuscular HGB CONC 32.3 g/dL (32.0-36.0); Mean Corpuscular Volume 92.9 fL (78.0-98.0); Mean Platelet Volume 6.1 fL (7.4-10.4); Platelet Count 251 thou/uL (130-400); RBC Distribution Width 12.9 % (11.5-14.5); Red Blood Cell (RBC) Count 4.29 mill/uL (4.70-6.10); White Blood Cell (WBC) Count 5.5 thou/uL (4.8-10.8)
[2018-11-23 09:13] LABS: INR-International Normal Ratio 3.4; Prothrombin Time 34.2 SEC (12.0-14.7)
[2018-11-23 09:23] LABS: ALT (SGPT) 16 U/L (8-55); AST (SGOT) 20 U/L (5-34); Albumin 3.9 g/dL (3.4-4.8); Alkaline Phosphatase 64 U/L (40-150); Anion Gap 16 mmol/L (10-20); BUN (Urea Nitrogen) 12 mg/dL (8.4-25.7); Bilirubin, Total 0.3 mg/dL (0.2-1.2); Calc. Creatinine Clearance 0 mL/min (70-130); Calcium 9.2 mg/dL (7.8-10.44); Carbon Dioxide 24 mmol/L (23-31); Chloride 100 mmol/L (98-107); Estimated GFR-MDRD 85; Globulin 2.7 g/dL (2.4-3.5); Glucose 92 mg/dL (83-110); Potassium 4.3 mmol/L (3.5-5.1); Protein, Total 6.6 g/dL (5.8-8.1); Sodium 136 mmol/L (136-145)
[2018-11-23 17:51] LABS: Iron 65 ug/dL (65-175)
== END 2018-11-23 08:31 | disposition home or self-care (01) ==
LOC: MADLABBHPM 08:30
PROVIDERS: ATTEND Family Medicine
DX: I10 Essential (primary) hypertension (principal); E61.1 Iron deficiency; D64.9 Anemia, unspecified
CPT/HCPCS: 36415; 80053; 82728; 83540; 85025; 85610

== ENCOUNTER 2018-12-01 11:37 | Outpatient (CLI) | payer MEDICARE, OTHER ==
[2018-12-01 12:03] LABS: INR-International Normal Ratio 2.5; Prothrombin Time 27.2 SEC (12.0-14.7)
== END 2018-12-01 11:38 | disposition home or self-care (01) ==
LOC: MADLAB 11:37
PROVIDERS: ATTEND Family Medicine
DX: Z51.81 Encounter for therapeutic drug level monitoring (principal); Z79.01 Long term (current) use of anticoagulants
CPT/HCPCS: 36415; 85610

== ENCOUNTER 2018-12-06 08:56 | Outpatient (CLI) | payer MEDICARE, OTHER ==
[2018-12-06 09:32] LABS: INR-International Normal Ratio 2.1; Prothrombin Time 23.7 SEC (12.0-14.7)
== END 2018-12-06 08:57 | disposition home or self-care (01) ==
LOC: MADLABBHPM 08:56
PROVIDERS: ATTEND Family Medicine
DX: Z51.81 Encounter for therapeutic drug level monitoring (principal); Z79.01 Long term (current) use of anticoagulants
CPT/HCPCS: 36415; 85610

== ENCOUNTER 2019-01-03 09:12 | Outpatient (CLI) | payer MEDICARE ==
[2019-01-03 09:50] LABS: INR-International Normal Ratio 1.3; Prothrombin Time 16.3 SEC (12.0-14.7)
== END 2019-01-03 09:13 | disposition home or self-care (01) ==
LOC: MADLAB 09:12
PROVIDERS: ATTEND Family Medicine
DX: Z51.81 Encounter for therapeutic drug level monitoring (principal); Z79.01 Long term (current) use of anticoagulants
CPT/HCPCS: 36415; 85610

== ENCOUNTER 2019-01-10 12:18 | Outpatient (CLI) | payer MEDICARE, OTHER ==
[2019-01-10 12:29] LABS: INR-International Normal Ratio 2.8; Prothrombin Time 29.2 SEC (12.0-14.7)
== END 2019-01-10 12:19 | disposition home or self-care (01) ==
LOC: MADLAB 12:18
PROVIDERS: ATTEND Family Medicine
DX: Z51.81 Encounter for therapeutic drug level monitoring (principal); Z79.01 Long term (current) use of anticoagulants
CPT/HCPCS: 36415; 85610

== ENCOUNTER 2019-02-24 10:10 | Outpatient (CLI) | payer MEDICARE ==
[2019-02-24 10:42] LABS: INR-International Normal Ratio 4.2
== END 2019-02-24 10:11 | disposition home or self-care (01) ==
LOC: MADLABBHPM 10:10
PROVIDERS: ATTEND Family Medicine
DX: Z51.81 Encounter for therapeutic drug level monitoring (principal); Z79.01 Long term (current) use of anticoagulants
CPT/HCPCS: 36415; 85610

== ENCOUNTER 2019-02-28 10:19 | Outpatient (CLI) | payer MEDICARE ==
[2019-02-28 10:41] LABS: INR-International Normal Ratio 1.6; Prothrombin Time 18.6 SEC (12.0-14.7)
== END 2019-02-28 10:20 | disposition home or self-care (01) ==
LOC: MADLABBHPM 10:19
PROVIDERS: ATTEND Family Medicine
DX: Z51.81 Encounter for therapeutic drug level monitoring (principal); Z79.01 Long term (current) use of anticoagulants
CPT/HCPCS: 36415; 85610

== ENCOUNTER 2019-03-07 09:28 | Outpatient (CLI) | payer MEDICARE ==
[2019-03-07 09:50] LABS: Prothrombin Time 22.2 SEC (12.0-14.7)
== END 2019-03-07 09:29 | disposition home or self-care (01) ==
LOC: MADLABBHPM 09:28
PROVIDERS: ATTEND Family Medicine
DX: Z51.81 Encounter for therapeutic drug level monitoring (principal); Z79.01 Long term (current) use of anticoagulants
CPT/HCPCS: 36415; 85610

== ENCOUNTER 2019-04-04 11:12 | Outpatient (CLI) | payer MEDICARE ==
[2019-04-04 12:00] LABS: INR-International Normal Ratio 2.1; Prothrombin Time 23.5 SEC (12.0-14.7)
== END 2019-04-04 11:13 | disposition home or self-care (01) ==
LOC: MADLABBHPM 11:12
PROVIDERS: ATTEND Family Medicine
DX: Z51.81 Encounter for therapeutic drug level monitoring (principal); Z79.01 Long term (current) use of anticoagulants
CPT/HCPCS: 36415; 85610

== ENCOUNTER 2019-04-25 09:08 | Outpatient (CLI) | payer MEDICARE ==
[2019-04-25 10:00] LABS: INR-International Normal Ratio 1.3; Prothrombin Time 16.1 SEC (12.0-14.7)
== END 2019-04-25 09:09 | disposition home or self-care (01) ==
LOC: MADLABBHPM 09:08
PROVIDERS: ATTEND Family Medicine
DX: Z51.81 Encounter for therapeutic drug level monitoring (principal); Z79.01 Long term (current) use of anticoagulants
CPT/HCPCS: 36415; 85610

== ENCOUNTER 2019-04-28 08:23 | Outpatient (CLI) | payer MEDICARE ==
[2019-04-28 08:51] LABS: INR-International Normal Ratio 1.3; Prothrombin Time 16.6 SEC (12.0-14.7)
--- NOTE | 2019-04-28 11:51 | RAD ---
2 view chest: [04/28/2019] Comparison:12/23/2017 and 04/23/2019 HISTORY: Pleural effusion FINDINGS: There is a dual lead transvenous pacing device inserted via a left subclavian approach. Sternotomy wires are present. There is pulmonary vascular congestion with perihilar and bibasilar int erstitial prominence, slightly worsened when compared to the prior exam. Small bilateral pleural effusions are noted, which appear to have slightly increased in size when compared to 04/23/2019 IMPRESSION: Interval worsening of pulmonary vascular congestion, interstitial prominence, and small b ilateral pleural effusions. Findings suggest pulmonary edema. Follow-up imaging following treatment to document resolution advised.
[2019-04-28 11:55] LABS: #Basophils 0.1 thou/uL (0.0-0.2); #Eosinphils 0.3 thou/uL (0.0-0.7); #Lymphocytes 0.7 thou/uL (1.20-3.40); #Neutrophils 6.2 thou/uL (1.40-6.50); %Basophils 1.5 % (0.0-1.0); %Eosinophils 3.2 % (0.0-10.0); %Lymphocytes 8.4 % (21.0-51.0); %Monocytes 12.6 % (0.0-10.0); %Neutrophils 74.4 % (42.0-75.0); Hemoglobin 9.6 g/dL (14.0-18.0); Mean Corpuscular HGB CONC 30.1 g/dL (32.0-36.0); Mean Corpuscular Hemoglobin 28.7 pg (27.0-31.0); Mean Corpuscular Volume 95.1 fL (78.0-98.0); Mean Platelet Volume 5.7 fL (7.4-10.4); Platelet Count 376 thou/uL (130-400); RBC Distribution Width 16.6 % (11.5-14.5); Red Blood Cell (RBC) Count 3.34 mill/uL (4.70-6.10); White Blood Cell (WBC) Count 8.3 thou/uL (4.8-10.8)
== END 2019-04-28 08:24 | disposition home or self-care (01) ==
LOC: MADLAB 08:23
PROVIDERS: ATTEND Family Medicine
DX: K92.2 Gastrointestinal hemorrhage, unspecified (principal); R06.02 Shortness of breath; R60.0 Localized edema; J90 Pleural effusion, not elsewhere classified; R91.8 Other nonspecific abnormal finding of lung field
CPT/HCPCS: 36415; 71046; 85025; 85610

== ENCOUNTER 2019-05-05 09:17 | Outpatient (CLI) | payer MEDICARE ==
--- NOTE | 2019-05-05 09:39 | RAD ---
XR Chest Pa Lat STANDARD History: Exertional shortness of breath Comparison: Radiograph April 28 Findings: Mild edema. Small right effusion. Small left effusion. No pneumothorax. Dual-lead pacer is similar. Heart size is enlarged. Multiple midline sternotomy wires. Impression: Similar examination of the chest. Mild decompensated congestive heart failure.
[2019-05-05 09:44] LABS: INR-International Normal Ratio 1.5; Prothrombin Time 18.1 SEC (12.0-14.7)
[2019-05-05 09:51] LABS: Anion Gap 14 mmol/L (10-20); BUN (Urea Nitrogen) 21 mg/dL (8.4-25.7); Calc. Creatinine Clearance 0 mL/min (70-130); Calcium 9.2 mg/dL (7.8-10.44); Carbon Dioxide 23 mmol/L (23-31); Chloride 105 mmol/L (98-107); Estimated GFR-MDRD 72; Glucose 100 mg/dL (83-110); Potassium 4.7 mmol/L (3.5-5.1); Sodium 137 mmol/L (136-145)
[2019-05-05 10:04] LABS: #Basophils 0.1 thou/uL (0.0-0.2); #Eosinphils 0.3 thou/uL (0.0-0.7); #Lymphocytes 0.7 thou/uL (1.20-3.40); #Monocytes 0.9 thou/uL (0.11-0.59); #Neutrophils 4.9 thou/uL (1.40-6.50); %Basophils 2.1 % (0.0-1.0); %Eosinophils 4.5 % (0.0-10.0); %Lymphocytes 9.6 % (21.0-51.0); %Monocytes 13.2 % (0.0-10.0); %Neutrophils 70.6 % (42.0-75.0); Hemoglobin 10.8 g/dL (14.0-18.0); Mean Corpuscular HGB CONC 30.9 g/dL (32.0-36.0); Mean Corpuscular Volume 93.7 fL (78.0-98.0); Mean Platelet Volume 5.8 fL (7.4-10.4); Platelet Count 448 thou/uL (130-400); RBC Distribution Width 16.4 % (11.5-14.5); Red Blood Cell (RBC) Count 3.74 mill/uL (4.70-6.10); White Blood Cell (WBC) Count 6.9 thou/uL (4.8-10.8)
== END 2019-05-05 09:18 | disposition home or self-care (01) ==
LOC: MADLAB 09:17
PROVIDERS: ATTEND Family Medicine
DX: K92.2 Gastrointestinal hemorrhage, unspecified (principal); R60.0 Localized edema; R06.02 Shortness of breath; I50.9 Heart failure, unspecified
CPT/HCPCS: 36415; 71046; 80048; 85025; 85610

== ENCOUNTER 2019-05-12 08:06 | Outpatient (CLI) | payer MEDICARE ==
[2019-05-12 08:53] LABS: INR-International Normal Ratio 2.1; Prothrombin Time 23.6 SEC (12.0-14.7)
== END 2019-05-12 08:07 | disposition home or self-care (01) ==
LOC: MADLAB 08:06
PROVIDERS: ATTEND Family Medicine
DX: Z51.81 Encounter for therapeutic drug level monitoring (principal); Z79.01 Long term (current) use of anticoagulants
CPT/HCPCS: 36415; 85610

== ENCOUNTER 2019-05-18 09:35 | Outpatient (CLI) | payer MEDICARE ==
[2019-05-18 21:54] LABS: INR-International Normal Ratio 2.9; Prothrombin Time 30.3 SEC (12.0-14.7)
== END 2019-05-18 09:36 | disposition home or self-care (01) ==
LOC: MADLABBHPM 09:35
PROVIDERS: ATTEND Family Medicine
DX: Z51.81 Encounter for therapeutic drug level monitoring (principal); Z79.01 Long term (current) use of anticoagulants
CPT/HCPCS: 36415; 85610

== ENCOUNTER 2019-05-26 08:12 | Outpatient (CLI) | payer MEDICARE ==
[2019-05-26 08:31] LABS: #Basophils 0.1 thou/uL (0.0-0.2); #Eosinphils 0.3 thou/uL (0.0-0.7); #Monocytes 0.8 thou/uL (0.11-0.59); #Neutrophils 4.3 thou/uL (1.40-6.50); %Eosinophils 4.2 % (0.0-10.0); %Lymphocytes 14.7 % (21.0-51.0); %Monocytes 13.1 % (0.0-10.0); %Neutrophils 67.1 % (42.0-75.0); Hemoglobin 12.3 g/dL (14.0-18.0); Mean Corpuscular HGB CONC 30.5 g/dL (32.0-36.0); Mean Corpuscular Hemoglobin 28.3 pg (27.0-31.0); Mean Corpuscular Volume 92.5 fL (78.0-98.0); Mean Platelet Volume 7.2 fL (7.4-10.4); Platelet Count 253 thou/uL (130-400); RBC Distribution Width 15.1 % (11.5-14.5); Red Blood Cell (RBC) Count 4.34 mill/uL (4.70-6.10); White Blood Cell (WBC) Count 6.5 thou/uL (4.8-10.8)
[2019-05-26 08:43] LABS: Anion Gap 14 mmol/L (10-20); BUN (Urea Nitrogen) 17 mg/dL (8.4-25.7); Calc. Creatinine Clearance 0 mL/min (70-130); Calcium 9.3 mg/dL (7.8-10.44); Carbon Dioxide 22 mmol/L (23-31); Chloride 104 mmol/L (98-107); Estimated GFR-MDRD 83; Glucose 109 mg/dL (83-110); Potassium 4.4 mmol/L (3.5-5.1); Sodium 136 mmol/L (136-145)
--- NOTE | 2019-05-26 08:45 | RAD ---
PA AND LATERAL VIEWS OF CHEST: HISTORY: Acute pulmonary edema, bilateral pleural effusions. COMPARISON: 05/05/2019. FINDINGS: Changes of median sternotomy and left-sided pacemaker device are again seen. The heart size is itz l. The aorta is tortuous. A small right pleural effusion is again seen. There is mild pulmonary va scular congestion. No pneumothoraces or lobar consolidation are seen. POS: [facility]
[2019-05-26 17:39] LABS: Iron 201 ug/dL (65-175); Iron Binding Capacity, Total 399 mcg/dL (261-462)
== END 2019-05-26 08:13 | disposition home or self-care (01) ==
LOC: MADLABBHPM 08:12
PROVIDERS: ATTEND Family Medicine
DX: J81.0 Acute pulmonary edema (principal); J90 Pleural effusion, not elsewhere classified; D62 Acute posthemorrhagic anemia; R09.89 Other specified symptoms and signs involving the circulatory and respiratory systems; Z95.0 Presence of cardiac pacemaker
CPT/HCPCS: 36415; 71046; 80048; 83540; 83550; 85025; 85610

== ENCOUNTER 2019-06-13 09:05 | Outpatient (CLI) | payer MEDICARE ==
[2019-06-13 09:28] LABS: INR-International Normal Ratio 2.1; Prothrombin Time 23.7 SEC (12.0-14.7)
== END 2019-06-13 09:06 | disposition home or self-care (01) ==
LOC: MADLABBHPM 09:05
PROVIDERS: ATTEND Family Medicine
DX: Z51.81 Encounter for therapeutic drug level monitoring (principal); Z79.01 Long term (current) use of anticoagulants
CPT/HCPCS: 36415; 85610

== ENCOUNTER 2019-07-04 08:22 | Outpatient (CLI) | payer MEDICARE ==
[2019-07-04 08:48] LABS: INR-International Normal Ratio 3.1; Prothrombin Time 31.6 SEC (12.0-14.7)
== END 2019-07-04 08:23 | disposition home or self-care (01) ==
LOC: MADLABBHPM 08:22
PROVIDERS: ATTEND Family Medicine
DX: Z51.81 Encounter for therapeutic drug level monitoring (principal); Z79.01 Long term (current) use of anticoagulants
CPT/HCPCS: 36415; 85610

== ENCOUNTER 2019-07-28 09:08 | Outpatient (CLI) | payer MEDICARE ==
[2019-07-28 09:39] LABS: INR-International Normal Ratio 2.5; Prothrombin Time 26.9 sec (12.0-14.7)
== END 2019-07-28 09:09 | disposition home or self-care (01) ==
LOC: MADLAB 09:08
PROVIDERS: ATTEND Family Medicine
DX: Z51.81 Encounter for therapeutic drug level monitoring (principal); Z79.01 Long term (current) use of anticoagulants
CPT/HCPCS: 36415; 85610

== ENCOUNTER 2019-09-23 10:21 | Outpatient (CLI) | payer MEDICARE ==
[2019-09-23 10:45] LABS: INR-International Normal Ratio 2.5; Prothrombin Time 27.2 sec (12.0-14.7)
== END 2019-09-23 10:22 | disposition home or self-care (01) ==
LOC: MADLAB 10:21
PROVIDERS: ATTEND Family Medicine
DX: Z51.81 Encounter for therapeutic drug level monitoring (principal); Z79.01 Long term (current) use of anticoagulants
CPT/HCPCS: 36415; 85610

== ENCOUNTER 2019-10-26 08:38 | Outpatient (CLI) | payer MEDICARE ==
[2019-10-26 10:25] LABS: Prothrombin Time 30.7 sec (12.0-14.7)
== END 2019-10-26 08:39 | disposition home or self-care (01) ==
LOC: MADLAB 08:38
PROVIDERS: ATTEND Family Medicine
DX: Z51.81 Encounter for therapeutic drug level monitoring (principal); Z79.01 Long term (current) use of anticoagulants
CPT/HCPCS: 36415; 85610

== ENCOUNTER 2019-11-04 09:46 | Emergency (ER) | payer MEDICARE ==
--- NOTE | 2019-11-04 10:32 | RAD ---
Exam: Chest one view HISTORY:Shortness of breath. Pneumonia. Dyspnea on exertion. Edema. Comparison: 04/23/2019 FINDINGS: Cardiac silhouette:Normal cardiac silhouette. There are sternotomy wires. Left sided transvenous pace maker terminates over the region right atrium and right ventricle Aorta: Unremarkable Pulmonary vessels: Normal Costophrenic angles: Small right-sided pleural effusion, unchanged. Previous noted fluid tracking maximilian ng the minor fissure is less evident. LUNGS: Scattered interstitial and alveolar opacities. Pneumothorax: No pneumothorax. Stable right apical pleural thickening. Osseous abnormalities: None IMPRESSION: 1. Correlate for volume overload/pulmonary edema. 2. Superimposed infiltrate cannot be excluded.
[2019-11-04 10:42] LABS: INR-International Normal Ratio 2.7; Prothrombin Time 28.1 sec (12.0-14.7)
[2019-11-04 10:56] LABS: ALT (SGPT) 15 U/L (8-55); AST (SGOT) 19 U/L (5-34); Albumin 3.9 g/dL (3.4-4.8); Alkaline Phosphatase 73 U/L (40-110); Anion Gap 14 mmol/L (10-20); BUN (Urea Nitrogen) 16 mg/dL (8.4-25.7); Bilirubin, Total 0.3 mg/dL (0.2-1.2); Calc. Creatinine Clearance 0 mL/min (70-130); Calcium 8.8 mg/dL (7.8-10.44); Carbon Dioxide 21 mmol/L (23-31); Chloride 106 mmol/L (98-107); Estimated GFR-MDRD 79; Globulin 2.5 g/dL (2.4-3.5); Glucose 95 mg/dL (83-110); Magnesium 1.9 mg/dL (1.6-2.6); Potassium 4.3 mmol/L (3.5-5.1); Protein, Total 6.4 g/dL (5.8-8.1); Sodium 137 mmol/L (136-145)
[2019-11-04 11:02] LABS: Band 1 % (5-11); Eosinophils 4 % (0-10); Hemoglobin 10.2 g/dL (14.0-18.0); Hypochromia SLIGHT = 6-15 cells (100X) (0-5/hpf); Lymphocytes 3 % (21-51); MDiff Complete? YES; Mean Corpuscular HGB CONC 31.2 g/dL (32.0-36.0); Mean Corpuscular Hemoglobin 28.2 pg (27.0-31.0); Mean Corpuscular Volume 90.5 fL (78.0-98.0); Mean Platelet Volume 5.8 fL (7.4-10.4); Monocytes 5 % (0-10); Neutrophil 77 % (42-75); Platelet Count 289 thou/uL (130-400); Polychromasia SLIGHT = 2-3 cells (100X) (0-2/hpf); RBC Distribution Width 13.7 % (11.5-14.5); Reactive Lymphocytes 10 % (0-10); Red Blood Cell (RBC) Count 3.63 mill/uL (4.70-6.10); White Blood Cell (WBC) Count 6.3 thou/uL (4.8-10.8)
[2019-11-04] MEDS ORDERED: Furosemide 40 MG/4 ML VIAL ONE (11:33)
[2019-11-04] MEDS ORDERED: Nitroglycerin 2% Ointment 1 INCH/1 GM Packet ONE (11:38)
--- NOTE | 2019-11-04 11:49 | CT ---
CT OF THE THORAX WITHOUT IV CONTRAST INDICATION: Shortness of breath and cough COMPARISON: Chest radiograph dated November 04, 2019 CT the thorax dated February 09, 2015. FINDINGS: LUNGS: There is stable scarring within the right upper lobe. Pleural spaces: There are small bilateral pleural effusions with bilateral pleural plaques. Lymph nodes: No pathologically enlarged lymph nodes. Heart and great vessels: There is stable pericardial calcifications. There is prominent mitral annula r calcifications are stable. Upper abdomen: Stable right adrenal adenoma. Osseous structures: No acute osseous abnormality. IMPRESSION: 1. No acute cardiopulmonary abnormality. 2. New bilateral pleural effusions. 3. Stable bilateral pleural plaques. 4. Stable right upper lobe scarring. 5. Stable pericardial calcifications. 6. Stable right adrenal adenoma
== END 2019-11-04 13:05 | disposition short-term general hospital (02) ==
LOC: MADERS 09:46
DX: J81.1 Chronic pulmonary edema (principal); I11.0 Hypertensive heart disease with heart failure; I50.9 Heart failure, unspecified; K21.9 Gastro-esophageal reflux disease without esophagitis; Z87.891 Personal history of nicotine dependence; Z79.01 Long term (current) use of anticoagulants; Z79.82 Long term (current) use of aspirin; Z79.899 Other long term (current) drug therapy
CPT/HCPCS: 71045; 71250; 80053; 83735; 83880; 84484; 85025; 85610; 93005; 96374; J1940

== ENCOUNTER 2019-11-14 09:18 | Emergency (ER) | payer MEDICARE ==
[2019-11-14] MEDS ORDERED: Sodium Chloride 0.9% 1,000 ML ONE (09:47)
[2019-11-14 09:54] LABS: #Basophils 0.1 thou/uL (0.0-0.2); #Eosinphils 0.2 thou/uL (0.0-0.7); #Lymphocytes 0.9 thou/uL (1.20-3.40); #Neutrophils 6.8 thou/uL (1.40-6.50); %Basophils 1.2 % (0.0-1.0); %Eosinophils 2.1 % (0.0-10.0); %Lymphocytes 9.6 % (21.0-51.0); %Monocytes 10.9 % (0.0-10.0); %Neutrophils 76.2 % (42.0-75.0); Hemoglobin 8.7 g/dL (14.0-18.0); Mean Corpuscular HGB CONC 31.3 g/dL (32.0-36.0); Mean Corpuscular Hemoglobin 27.7 pg (27.0-31.0); Mean Corpuscular Volume 88.4 fL (78.0-98.0); Mean Platelet Volume 5.9 fL (7.4-10.4); Platelet Count 288 thou/uL (130-400); RBC Distribution Width 14.6 % (11.5-14.5); Red Blood Cell (RBC) Count 3.13 mill/uL (4.70-6.10); White Blood Cell (WBC) Count 8.9 thou/uL (4.8-10.8)
[2019-11-14 10:10] LABS: ALT (SGPT) 15 U/L (8-55); AST (SGOT) 20 U/L (5-34); Albumin 3.6 g/dL (3.4-4.8); Alkaline Phosphatase 61 U/L (40-110); Anion Gap 15 mmol/L (10-20); BUN (Urea Nitrogen) 30 mg/dL (8.4-25.7); Bilirubin, Total 0.7 mg/dL (0.2-1.2); CK (CPK) 229 U/L (30-200); Calc. Creatinine Clearance 0 mL/min (70-130); Calcium 8.5 mg/dL (7.8-10.44); Carbon Dioxide 26 mmol/L (23-31); Chloride 95 mmol/L (98-107); Globulin 2.3 g/dL (2.4-3.5); Glucose 133 mg/dL (83-110); Potassium 3.6 mmol/L (3.5-5.1); Protein, Total 5.9 g/dL (5.8-8.1); Sodium 132 mmol/L (136-145)
[2019-11-14 10:11] LABS: CKMB 2.3 ng/mL (0-6.6)
[2019-11-14 10:20] LABS: PTT 54.4 sec (22.9-36.1)
[2019-11-14 10:25] LABS: INR-International Normal Ratio 4.3
[2019-11-14 10:28] LABS: Prothrombin Time 40.9 sec (12.0-14.7)
--- NOTE | 2019-11-14 10:35 | RAD ---
PORTABLE CHEST 1 VIEW: DATE: 11/14/2019. TIME: 9:49 AM. HISTORY: Syncope. COMPARISON: 11/04/2019. FINDINGS: There are changes of median sternotomy. A left-sided pacemaker device remains in place. The heart s ize is normal. There is continued blunting of the right costophrenic angle and chronic changes in th e right lung. No focal areas of consolidation, pneumothoraces, or left pleural effusion are seen. IMPRESSION: Stable small right pleural effusion. POS: [facility]
== END 2019-11-14 11:30 | disposition short-term general hospital (02) ==
LOC: MADERS 09:18
DX: T45.511A Poisoning by anticoagulants, accidental (unintentional), initial encounter (principal); R55 Syncope and collapse; R79.89 Other specified abnormal findings of blood chemistry; D64.9 Anemia, unspecified; I25.10 Atherosclerotic heart disease of native coronary artery without angina pectoris; I35.0 Nonrheumatic aortic (valve) stenosis; E78.5 Hyperlipidemia, unspecified; I10 Essential (primary) hypertension; Z87.891 Personal history of nicotine dependence; Z79.01 Long term (current) use of anticoagulants; Z79.82 Long term (current) use of aspirin; Z79.899 Other long term (current) drug therapy
CPT/HCPCS: 71045; 80053; 82550; 82553; 84484; 85025; 85610; 85730; 96360; 96361; J7050

== ENCOUNTER 2019-11-24 12:02 | Outpatient (CLI) | payer MEDICARE ==
[2019-11-24 12:53] LABS: INR-International Normal Ratio 2.4; Prothrombin Time 25.9 sec (12.0-14.7)
== END 2019-11-24 12:03 | disposition home or self-care (01) ==
LOC: MADLAB 12:02
PROVIDERS: ATTEND Family Medicine
DX: Z51.81 Encounter for therapeutic drug level monitoring (principal); Z79.01 Long term (current) use of anticoagulants
CPT/HCPCS: 36415; 85610

== ENCOUNTER 2019-12-01 11:36 | Outpatient (CLI) | payer MEDICARE ==
[2019-12-01 11:49] LABS: Hemoglobin 8.9 g/dL (14.0-18.0)
[2019-12-01 11:58] LABS: Prothrombin Time 22.2 sec (12.0-14.7)
== END 2019-12-01 11:37 | disposition home or self-care (01) ==
LOC: MADLAB 11:36
PROVIDERS: ATTEND Family Medicine
DX: Z51.81 Encounter for therapeutic drug level monitoring (principal); D50.0 Iron deficiency anemia secondary to blood loss (chronic); Q27.33 Arteriovenous malformation of digestive system vessel; Z79.01 Long term (current) use of anticoagulants
CPT/HCPCS: 36415; 85014; 85018; 85610

== ENCOUNTER 2019-12-21 14:12 | Outpatient (CLI) | payer MEDICARE ==
[2019-12-21 14:37] LABS: #Basophils 0.1 thou/uL (0.0-0.2); #Eosinphils 0.1 thou/uL (0.0-0.7); #Lymphocytes 1.1 thou/uL (1.20-3.40); #Neutrophils 6.9 thou/uL (1.40-6.50); %Basophils 0.8 % (0.0-1.0); %Eosinophils 1.5 % (0.0-10.0); %Monocytes 10.3 % (0.0-10.0); %Neutrophils 75.4 % (42.0-75.0); Hemoglobin 10.7 g/dL (14.0-18.0); Mean Corpuscular HGB CONC 29.9 g/dL (32.0-36.0); Mean Corpuscular Hemoglobin 25.3 pg (27.0-31.0); Mean Corpuscular Volume 84.4 fL (78.0-98.0); Platelet Count 289 thou/uL (130-400); RBC Distribution Width 17.2 % (11.5-14.5); Red Blood Cell (RBC) Count 4.24 mill/uL (4.70-6.10); White Blood Cell (WBC) Count 9.2 thou/uL (4.8-10.8)
[2019-12-21 14:43] LABS: INR-International Normal Ratio 2.8; Prothrombin Time 29.9 sec (12.0-14.7)
== END 2019-12-21 14:13 | disposition home or self-care (01) ==
LOC: MADLAB 14:12
PROVIDERS: ATTEND Family Medicine
DX: Z51.81 Encounter for therapeutic drug level monitoring (principal); D64.9 Anemia, unspecified; Z79.01 Long term (current) use of anticoagulants
CPT/HCPCS: 36415; 85025; 85610

== ENCOUNTER 2019-12-28 10:53 | Outpatient (CLI) | payer MEDICARE ==
[2019-12-28 11:45] LABS: INR-International Normal Ratio 2.8; Prothrombin Time 29.8 sec (12.0-14.7)
[2019-12-28 12:03] LABS: #Basophils 0.1 thou/uL (0.0-0.2); #Eosinphils 0.2 thou/uL (0.0-0.7); #Lymphocytes 0.8 thou/uL (1.20-3.40); #Monocytes 0.9 thou/uL (0.11-0.59); #Neutrophils 4.8 thou/uL (1.40-6.50); %Basophils 1.9 % (0.0-1.0); %Eosinophils 2.8 % (0.0-10.0); %Lymphocytes 12.2 % (21.0-51.0); %Monocytes 13.1 % (0.0-10.0); %Neutrophils 69.9 % (42.0-75.0); Hemoglobin 11.4 g/dL (14.0-18.0); Mean Corpuscular HGB CONC 29.8 g/dL (32.0-36.0); Mean Corpuscular Hemoglobin 25.1 pg (27.0-31.0); Mean Corpuscular Volume 84.3 fL (78.0-98.0); Mean Platelet Volume 6.4 fL (7.4-10.4); Platelet Count 320 thou/uL (130-400); RBC Distribution Width 16.9 % (11.5-14.5); Red Blood Cell (RBC) Count 4.53 mill/uL (4.70-6.10); White Blood Cell (WBC) Count 6.8 thou/uL (4.8-10.8)
== END 2019-12-28 10:54 | disposition home or self-care (01) ==
LOC: MADLAB 10:53
PROVIDERS: ATTEND Family Medicine
DX: Z51.81 Encounter for therapeutic drug level monitoring (principal); D64.9 Anemia, unspecified; Z79.01 Long term (current) use of anticoagulants
CPT/HCPCS: 36415; 85025; 85610

== ENCOUNTER 2020-01-04 12:24 | Outpatient (CLI) | payer MEDICARE ==
[2020-01-04 12:45] LABS: #Basophils 0.1 thou/uL (0.0-0.2); #Eosinphils 0.3 thou/uL (0.0-0.7); #Lymphocytes 1.2 thou/uL (1.20-3.40); #Neutrophils 6.3 thou/uL (1.40-6.50); %Basophils 1.1 % (0.0-1.0); %Eosinophils 3.4 % (0.0-10.0); %Lymphocytes 13.6 % (21.0-51.0); %Monocytes 11.1 % (0.0-10.0); %Neutrophils 70.9 % (42.0-75.0); Hemoglobin 12.7 g/dL (14.0-18.0); Mean Corpuscular HGB CONC 30.2 g/dL (32.0-36.0); Mean Corpuscular Hemoglobin 25.9 pg (27.0-31.0); Mean Corpuscular Volume 85.8 fL (78.0-98.0); Mean Platelet Volume 7.3 fL (7.4-10.4); Platelet Count 299 thou/uL (130-400); RBC Distribution Width 16.6 % (11.5-14.5); White Blood Cell (WBC) Count 8.9 thou/uL (4.8-10.8)
[2020-01-04 12:46] LABS: INR-International Normal Ratio 2.6; Prothrombin Time 28.6 sec (12.0-14.7)
== END 2020-01-04 12:25 | disposition home or self-care (01) ==
LOC: MADLABBHPM 12:24
PROVIDERS: ATTEND Family Medicine
DX: Z51.81 Encounter for therapeutic drug level monitoring (principal); D64.9 Anemia, unspecified; Z79.01 Long term (current) use of anticoagulants
CPT/HCPCS: 36415; 85025; 85610

== ENCOUNTER 2020-01-18 08:55 | Outpatient (CLI) | payer MEDICARE ==
[2020-01-18 09:21] LABS: #Basophils 0.1 thou/uL (0.0-0.2); #Eosinphils 0.2 thou/uL (0.0-0.7); #Neutrophils 6.4 thou/uL (1.40-6.50); %Basophils 1.4 % (0.0-1.0); %Eosinophils 2.5 % (0.0-10.0); %Lymphocytes 11.8 % (21.0-51.0); %Monocytes 11.4 % (0.0-10.0); %Neutrophils 72.9 % (42.0-75.0); Hemoglobin 12.6 g/dL (14.0-18.0); Mean Corpuscular HGB CONC 30.3 g/dL (32.0-36.0); Mean Corpuscular Hemoglobin 25.7 pg (27.0-31.0); Mean Corpuscular Volume 84.8 fL (78.0-98.0); Mean Platelet Volume 6.9 fL (7.4-10.4); Platelet Count 235 thou/uL (130-400); RBC Distribution Width 16.5 % (11.5-14.5); Red Blood Cell (RBC) Count 4.92 mill/uL (4.70-6.10); White Blood Cell (WBC) Count 8.8 thou/uL (4.8-10.8)
[2020-01-18 09:24] LABS: INR-International Normal Ratio 3.9; Prothrombin Time 38.8 sec (12.0-14.7)
== END 2020-01-18 08:56 | disposition home or self-care (01) ==
LOC: MADLABBHPM 08:55
PROVIDERS: ATTEND Family Medicine
DX: D64.9 Anemia, unspecified (principal); Z79.01 Long term (current) use of anticoagulants
CPT/HCPCS: 36415; 85025; 85610

== ENCOUNTER 2020-01-25 08:50 | Outpatient (CLI) | payer MEDICARE ==
[2020-01-25 09:18] LABS: INR-International Normal Ratio 1.3; Prothrombin Time 16.5 sec (12.0-14.7)
[2020-01-25 10:31] LABS: #Basophils 0.1 thou/uL (0.0-0.2); #Eosinphils 0.2 thou/uL (0.0-0.7); #Lymphocytes 0.8 thou/uL (1.20-3.40); #Monocytes 0.8 thou/uL (0.11-0.59); #Neutrophils 4.4 thou/uL (1.40-6.50); %Basophils 1.8 % (0.0-1.0); %Eosinophils 3.7 % (0.0-10.0); %Lymphocytes 12.7 % (21.0-51.0); %Monocytes 12.8 % (0.0-10.0); Hemoglobin 12.6 g/dL (14.0-18.0); Mean Corpuscular HGB CONC 30.3 g/dL (32.0-36.0); Mean Corpuscular Hemoglobin 25.7 pg (27.0-31.0); Mean Corpuscular Volume 84.9 fL (78.0-98.0); Mean Platelet Volume 7.1 fL (7.4-10.4); Platelet Count 247 thou/uL (130-400); RBC Distribution Width 16.6 % (11.5-14.5); Red Blood Cell (RBC) Count 4.92 mill/uL (4.70-6.10); White Blood Cell (WBC) Count 6.3 thou/uL (4.8-10.8)
== END 2020-01-25 08:51 | disposition home or self-care (01) ==
LOC: MADLABBHPM 08:50
PROVIDERS: ATTEND Family Medicine
DX: Z51.81 Encounter for therapeutic drug level monitoring (principal); D64.9 Anemia, unspecified; Z79.01 Long term (current) use of anticoagulants
CPT/HCPCS: 36415; 85025; 85610

== ENCOUNTER 2020-01-30 09:18 | Outpatient (CLI) | payer MEDICARE ==
[2020-01-30 09:37] LABS: INR-International Normal Ratio 1.8; Prothrombin Time 21.1 sec (12.0-14.7)
== END 2020-01-30 09:19 | disposition home or self-care (01) ==
LOC: MADLAB 09:18
PROVIDERS: ATTEND Family Medicine
DX: Z51.81 Encounter for therapeutic drug level monitoring (principal); Z79.01 Long term (current) use of anticoagulants
CPT/HCPCS: 36415; 85610

== ENCOUNTER 2020-02-06 12:23 | Outpatient (CLI) | payer MEDICARE ==
[2020-02-06 12:44] LABS: INR-International Normal Ratio 2.4; Prothrombin Time 26.4 sec (12.0-14.7)
== END 2020-02-06 12:24 | disposition home or self-care (01) ==
LOC: MADLAB 12:23
PROVIDERS: ATTEND Family Medicine
DX: Z51.81 Encounter for therapeutic drug level monitoring (principal); Z79.01 Long term (current) use of anticoagulants
CPT/HCPCS: 36415; 85610

== ENCOUNTER 2020-03-12 10:20 | Outpatient (CLI) | payer MEDICARE ==
[2020-03-12 10:45] LABS: INR-International Normal Ratio 2.4; Prothrombin Time 26.6 sec (12.0-14.7)
== END 2020-03-12 10:21 | disposition home or self-care (01) ==
LOC: MADLAB 10:20
PROVIDERS: ATTEND Family Medicine
DX: Z51.81 Encounter for therapeutic drug level monitoring (principal); Z79.01 Long term (current) use of anticoagulants
CPT/HCPCS: 36415; 85610

== ENCOUNTER 2020-05-07 15:22 | Outpatient (CLI) | payer MEDICARE ==
[2020-05-07 15:49] LABS: INR-International Normal Ratio 1.8; Prothrombin Time 21.7 sec (12.0-14.7)
[2020-05-07 15:50] LABS: ALT (SGPT) 17 U/L (8-55); AST (SGOT) 19 U/L (5-34); Albumin 4.3 g/dL (3.4-4.8); Alkaline Phosphatase 70 U/L (40-110); Anion Gap 16 mmol/L (10-20); BUN (Urea Nitrogen) 14 mg/dL (8.4-25.7); Calc. Creatinine Clearance 0 mL/min (70-130); Calcium 9.3 mg/dL (7.8-10.44); Carbon Dioxide 25 mmol/L (23-31); Cardiac Risk 2.8 (Less than 4.5); Chloride 101 mmol/L (98-107); Cholesterol 161 mg/dl (< 200 Desired); Globulin 2.5 g/dL (2.4-3.5); Glucose 105 mg/dL (83-110); HDL Cholesterol 58 mg/dL (>60 Neg Risk); LDL Cholesterol, Calculated 69 mg/dL; Potassium 4.7 mmol/L (3.5-5.1); Protein, Total 6.8 g/dL (5.8-8.1); Sodium 137 mmol/L (136-145); Triglycerides 170 mg/dL (Less than 150)
[2020-05-07 16:01] LABS: #Basophils 0.1 thou/uL (0.0-0.2); #Eosinphils 0.5 thou/uL (0.0-0.7); #Lymphocytes 1.2 thou/uL (1.20-3.40); #Neutrophils 5.5 thou/uL (1.40-6.50); %Basophils 0.9 % (0.0-1.0); %Eosinophils 6.1 % (0.0-10.0); %Lymphocytes 14.8 % (21.0-51.0); %Monocytes 12.4 % (0.0-10.0); %Neutrophils 65.9 % (42.0-75.0); Hemoglobin 14.5 g/dL (14.0-18.0); Mean Corpuscular HGB CONC 31.8 g/dL (32.0-36.0); Mean Corpuscular Hemoglobin 28.6 pg (27.0-31.0); Mean Platelet Volume 7.1 fL (7.4-10.4); Platelet Count 255 thou/uL (130-400); RBC Distribution Width 13.2 % (11.5-14.5); Red Blood Cell (RBC) Count 5.07 mill/uL (4.70-6.10); White Blood Cell (WBC) Count 8.3 thou/uL (4.8-10.8)
== END 2020-05-07 15:23 | disposition home or self-care (01) ==
LOC: MADLAB 15:22
PROVIDERS: ATTEND Family Medicine
DX: Z51.81 Encounter for therapeutic drug level monitoring (principal); E78.2 Mixed hyperlipidemia; I10 Essential (primary) hypertension; D50.9 Iron deficiency anemia, unspecified; Z79.01 Long term (current) use of anticoagulants
CPT/HCPCS: 36415; 80053; 80061; 85025; 85610

== ENCOUNTER 2020-05-18 08:15 | Outpatient (CLI) | payer MEDICARE ==
[2020-05-18 08:37] LABS: #Basophils 0.1 thou/uL (0.0-0.2); #Eosinphils 0.4 thou/uL (0.0-0.7); #Lymphocytes 1.3 thou/uL (1.20-3.40); #Monocytes 0.9 thou/uL (0.11-0.59); #Neutrophils 5.1 thou/uL (1.40-6.50); %Basophils 1.1 % (0.0-1.0); %Eosinophils 5.5 % (0.0-10.0); %Lymphocytes 16.1 % (21.0-51.0); %Neutrophils 65.4 % (42.0-75.0); Hemoglobin 13.9 g/dL (14.0-18.0); Mean Corpuscular HGB CONC 33.5 g/dL (32.0-36.0); Mean Corpuscular Volume 89.7 fL (78.0-98.0); Mean Platelet Volume 7.3 fL (7.4-10.4); Platelet Count 200 thou/uL (130-400); RBC Distribution Width 13.1 % (11.5-14.5); Red Blood Cell (RBC) Count 4.63 mill/uL (4.70-6.10); White Blood Cell (WBC) Count 7.7 thou/uL (4.8-10.8)
[2020-05-18 09:04] LABS: Prothrombin Time 31.5 sec (12.0-14.7)
== END 2020-05-18 08:16 | disposition home or self-care (01) ==
LOC: MADLAB 08:15
PROVIDERS: ATTEND Family Medicine
DX: Z51.81 Encounter for therapeutic drug level monitoring (principal); Z79.01 Long term (current) use of anticoagulants; D64.9 Anemia, unspecified
CPT/HCPCS: 36415; 85025; 85610

== ENCOUNTER 2020-07-16 08:58 | Outpatient (CLI) | payer MEDICARE ==
[2020-07-16 09:26] LABS: INR-International Normal Ratio 2.3; Prothrombin Time 25.8 sec (12.0-14.7)
== END 2020-07-16 08:59 | disposition home or self-care (01) ==
LOC: MADLAB 08:58
PROVIDERS: ATTEND Family Medicine
DX: Z51.81 Encounter for therapeutic drug level monitoring (principal); Z79.01 Long term (current) use of anticoagulants
CPT/HCPCS: 36415; 85610

== ENCOUNTER 2020-08-14 08:02 | Outpatient (CLI) | payer MEDICARE ==
[2020-08-14 08:51] LABS: INR-International Normal Ratio 3.5; Prothrombin Time 35.5 sec (12.0-14.7)
== END 2020-08-14 08:03 | disposition home or self-care (01) ==
LOC: MADLAB 08:02
PROVIDERS: ATTEND Family Medicine
DX: Z51.81 Encounter for therapeutic drug level monitoring (principal); Z79.01 Long term (current) use of anticoagulants
CPT/HCPCS: 36415; 85610

== ENCOUNTER 2020-08-22 07:53 | Outpatient (CLI) | payer MEDICARE ==
[2020-08-22 08:33] LABS: INR-International Normal Ratio 2.1; Prothrombin Time 23.9 sec (12.0-14.7)
== END 2020-08-22 07:54 | disposition home or self-care (01) ==
LOC: MADLAB 07:53
PROVIDERS: ATTEND Family Medicine
DX: Z51.81 Encounter for therapeutic drug level monitoring (principal); Z79.01 Long term (current) use of anticoagulants
CPT/HCPCS: 36415; 85610

== ENCOUNTER 2020-09-03 09:22 | Outpatient (CLI) | payer MEDICARE | END 2020-09-03 09:23 | disposition home or self-care (01) | LOC: MADLAB 09:22 | PROVIDERS: ATTEND Surgery | DX: I34.0 Nonrheumatic mitral (valve) insufficiency (principal) | CPT/HCPCS: 71046 ==

== ENCOUNTER 2020-10-01 10:00 | Outpatient (CLI) | payer MEDICARE ==
[2020-10-01 10:39] LABS: INR-International Normal Ratio 1.7
== END 2020-10-01 10:01 | disposition home or self-care (01) ==
LOC: MADLAB 10:00
PROVIDERS: ATTEND Family Medicine
DX: Z51.81 Encounter for therapeutic drug level monitoring (principal); Z79.01 Long term (current) use of anticoagulants
CPT/HCPCS: 36415; 85610

== ENCOUNTER 2020-10-04 10:42 | Outpatient (CLI) | payer MEDICARE ==
[2020-10-04 17:01] LABS: INR-International Normal Ratio 2.3; Prothrombin Time 25.8 sec (12.0-14.7)
== END 2020-10-04 10:43 | disposition home or self-care (01) ==
LOC: MADLAB 10:42
PROVIDERS: ATTEND Family Medicine
DX: Z51.81 Encounter for therapeutic drug level monitoring (principal); Z79.01 Long term (current) use of anticoagulants
CPT/HCPCS: 36415; 85610

== ENCOUNTER 2020-10-15 07:59 | Outpatient (CLI) | payer MEDICARE ==
[2020-10-15 08:24] LABS: INR-International Normal Ratio 3.1; Prothrombin Time 31.9 sec (12.0-14.7)
== END 2020-10-15 08:00 | disposition home or self-care (01) ==
LOC: MADLAB 07:59
PROVIDERS: ATTEND Family Medicine
DX: Z51.81 Encounter for therapeutic drug level monitoring (principal); Z79.01 Long term (current) use of anticoagulants
CPT/HCPCS: 36415; 85610

== ENCOUNTER 2020-10-22 08:09 | Outpatient (CLI) | payer MEDICARE ==
[2020-10-22 08:39] LABS: INR-International Normal Ratio 2.6
== END 2020-10-22 08:10 | disposition home or self-care (01) ==
LOC: MADLAB 08:09
PROVIDERS: ATTEND Family Medicine
DX: Z51.81 Encounter for therapeutic drug level monitoring (principal); Z79.01 Long term (current) use of anticoagulants
CPT/HCPCS: 36415; 85610

== ENCOUNTER 2020-10-29 08:20 | Outpatient (CLI) | payer MEDICARE ==
[2020-10-29 08:59] LABS: INR-International Normal Ratio 3.3; Prothrombin Time 33.4 sec (12.0-14.7)
== END 2020-10-29 08:21 | disposition home or self-care (01) ==
LOC: MADLAB 08:20
PROVIDERS: ATTEND Family Medicine
DX: Z51.81 Encounter for therapeutic drug level monitoring (principal); Z79.01 Long term (current) use of anticoagulants
CPT/HCPCS: 36415; 85610

== ENCOUNTER 2020-11-12 08:11 | Outpatient (CLI) | payer MEDICARE ==
[2020-11-12 08:36] LABS: INR-International Normal Ratio 3.1; Prothrombin Time 32.2 sec (12.0-14.7)
[2020-11-12 08:46] LABS: ALT (SGPT) 13 U/L (8-55); AST (SGOT) 17 U/L (5-34); Albumin 3.9 g/dL (3.4-4.8); Alkaline Phosphatase 82 U/L (40-110); Anion Gap 11 mmol/L (10-20); BUN (Urea Nitrogen) 14 mg/dL (8.4-25.7); Bilirubin, Total 0.3 mg/dL (0.2-1.2); Calc. Creatinine Clearance 0 mL/min (70-130); Calcium 9.7 mg/dL (7.8-10.44); Carbon Dioxide 27 mmol/L (23-31); Chloride 102 mmol/L (98-107); Cholesterol 206 mg/dl (< 200 Desired); Globulin 3.2 g/dL (2.4-3.5); Glucose 106 mg/dL (83-110); HDL Cholesterol 52 mg/dL (>60 Neg Risk); LDL Cholesterol, Calculated 135 mg/dL; Protein, Total 7.1 g/dL (5.8-8.1); Sodium 136 mmol/L (136-145); Triglycerides 96 mg/dL (Less than 150)
[2020-11-12 08:59] LABS: Band 16 % (5-11); Eosinophils 7 % (0-10); Hemoglobin 12.1 g/dL (14.0-18.0); Lymphocytes 22 % (21-51); MDiff Complete? YES; Mean Corpuscular HGB CONC 30.4 g/dL (32.0-36.0); Mean Corpuscular Hemoglobin 27.3 pg (27.0-31.0); Mean Corpuscular Volume 89.7 fL (78.0-98.0); Monocytes 6 % (0-10); Neutrophil 49 % (42-75); Platelet Count 261 thou/uL (130-400); Platelet Morphology Comment Appears Adequate; RBC Distribution Width 13.6 % (11.5-14.5); RBC Morphology Normal; Red Blood Cell (RBC) Count 4.43 mill/uL (4.70-6.10); White Blood Cell (WBC) Count 5.8 thou/uL (4.8-10.8)
== END 2020-11-12 08:12 | disposition home or self-care (01) ==
LOC: MADLAB 08:11
PROVIDERS: ATTEND Family Medicine
DX: Z51.81 Encounter for therapeutic drug level monitoring (principal); E78.3 Hyperchylomicronemia; Z79.01 Long term (current) use of anticoagulants
CPT/HCPCS: 36415; 80053; 80061; 85025; 85610

== ENCOUNTER 2020-11-26 07:41 | Outpatient (CLI) | payer MEDICARE ==
[2020-11-26 08:25] LABS: INR-International Normal Ratio 1.8; Prothrombin Time 21.1 sec (12.0-14.7)
[2020-11-26 08:36] LABS: ALT (SGPT) 17 U/L (8-55); AST (SGOT) 21 U/L (5-34); Alkaline Phosphatase 76 U/L (40-110); Anion Gap 16 mmol/L (10-20); BUN (Urea Nitrogen) 14 mg/dL (8.4-25.7); Bilirubin, Direct 0.2 mg/dL (0.1-0.3); Bilirubin, Total 0.5 mg/dL (0.2-1.2); Calc. Creatinine Clearance 0 mL/min (70-130); Calcium 9.7 mg/dL (7.8-10.44); Carbon Dioxide 22 mmol/L (23-31); Cardiac Risk 4.2 (Less than 4.5); Chloride 102 mmol/L (98-107); Cholesterol 203 mg/dl (< 200 Desired); Glucose 104 mg/dL (83-110); HDL Cholesterol 48 mg/dL (>60 Neg Risk); LDL Cholesterol, Calculated 128 mg/dL; Potassium 4.3 mmol/L (3.5-5.1); Protein, Total 7.2 g/dL (5.8-8.1); Sodium 136 mmol/L (136-145); Triglycerides 135 mg/dL (Less than 150)
== END 2020-11-26 07:42 | disposition home or self-care (01) ==
LOC: MADLAB 07:41
PROVIDERS: ATTEND Family Medicine
DX: Z51.81 Encounter for therapeutic drug level monitoring (principal); E78.2 Mixed hyperlipidemia; Z79.01 Long term (current) use of anticoagulants
CPT/HCPCS: 36415; 80048; 80061; 80076; 85610

== ENCOUNTER 2020-12-03 08:00 | Outpatient (CLI) | payer MEDICARE ==
[2020-12-03 09:39] LABS: INR-International Normal Ratio 3.3; Prothrombin Time 33.5 sec (12.0-14.7)
== END 2020-12-03 08:01 | disposition home or self-care (01) ==
LOC: MADLAB 08:00
PROVIDERS: ATTEND Family Medicine
DX: Z51.81 Encounter for therapeutic drug level monitoring (principal); Z79.01 Long term (current) use of anticoagulants
CPT/HCPCS: 36415; 85610

== ENCOUNTER 2020-12-10 07:30 | Outpatient (CLI) | payer MEDICARE, OTHER ==
[2020-12-10 08:52] LABS: INR-International Normal Ratio 2.8; Prothrombin Time 30.2 sec (12.0-14.7)
== END 2020-12-10 07:31 | disposition home or self-care (01) ==
LOC: MADLAB 07:30
PROVIDERS: ATTEND Family Medicine
DX: D64.9 Anemia, unspecified (principal)
CPT/HCPCS: 36415; 85610

== ENCOUNTER 2020-12-24 07:21 | Outpatient (CLI) | payer OTHER ==
[2020-12-24 08:44] LABS: #Basophils 0.1 thou/uL (0.0-0.2); #Eosinphils 0.4 thou/uL (0.0-0.7); #Lymphocytes 1.2 thou/uL (1.20-3.40); #Monocytes 1.2 thou/uL (0.11-0.59); #Neutrophils 5.8 thou/uL (1.40-6.50); %Basophils 1.1 % (0.0-1.0); %Eosinophils 4.2 % (0.0-10.0); %Lymphocytes 14.2 % (21.0-51.0); %Monocytes 13.3 % (0.0-10.0); %Neutrophils 67.1 % (42.0-75.0); Hemoglobin 14.4 g/dL (14.0-18.0); Mean Corpuscular HGB CONC 30.2 g/dL (32.0-36.0); Mean Corpuscular Hemoglobin 27.5 pg (27.0-31.0); Mean Platelet Volume 7.3 fL (7.4-10.4); Platelet Count 240 thou/uL (130-400); RBC Distribution Width 14.8 % (11.5-14.5); Red Blood Cell (RBC) Count 5.22 mill/uL (4.70-6.10); White Blood Cell (WBC) Count 8.7 thou/uL (4.8-10.8)
== END 2020-12-24 07:22 | disposition home or self-care (01) ==
LOC: MADLAB 07:21
PROVIDERS: ATTEND Family Medicine
DX: D64.9 Anemia, unspecified (principal)
CPT/HCPCS: 36415; 85025

== ENCOUNTER 2021-01-10 12:20 | Outpatient (CLI) | payer OTHER ==
[2021-01-10 13:10] LABS: INR-International Normal Ratio 2.4; Prothrombin Time 26.9 sec (12.0-14.7)
== END 2021-01-10 12:21 | disposition home or self-care (01) ==
LOC: MADLAB 12:20
PROVIDERS: ATTEND Family Medicine
DX: Z51.81 Encounter for therapeutic drug level monitoring (principal); D64.9 Anemia, unspecified; Z79.01 Long term (current) use of anticoagulants
CPT/HCPCS: 36415; 85610

== ENCOUNTER 2021-02-08 07:37 | Outpatient (CLI) | payer MEDICARE ==
[2021-02-08 08:46] LABS: INR-International Normal Ratio 2.3; Prothrombin Time 25.4 sec (12.0-14.7)
== END 2021-02-08 07:38 | disposition home or self-care (01) ==
LOC: MADLAB 07:37
PROVIDERS: ATTEND Family Medicine
DX: Z51.81 Encounter for therapeutic drug level monitoring (principal); Z79.01 Long term (current) use of anticoagulants
CPT/HCPCS: 36415; 85610

== ENCOUNTER 2021-03-12 09:11 | Outpatient (CLI) | payer MEDICARE ==
[2021-03-12 09:32] LABS: INR-International Normal Ratio 2.4; Prothrombin Time 26.6 sec (12.0-14.7)
== END 2021-03-12 09:12 | disposition home or self-care (01) ==
LOC: MADLAB 09:11
PROVIDERS: ATTEND Family Medicine
DX: Z51.81 Encounter for therapeutic drug level monitoring (principal); Z79.01 Long term (current) use of anticoagulants
CPT/HCPCS: 36415; 85610

== ENCOUNTER 2021-04-08 10:01 | Outpatient (CLI) | payer MEDICARE ==
[2021-04-08 10:29] LABS: Prothrombin Time 41.5 sec (12.0-14.7)
[2021-04-08 10:31] LABS: INR-International Normal Ratio 4.2
== END 2021-04-08 10:02 | disposition home or self-care (01) ==
LOC: MADLAB 10:01
PROVIDERS: ATTEND Family Medicine
DX: Z51.81 Encounter for therapeutic drug level monitoring (principal); E78.3 Hyperchylomicronemia; D64.9 Anemia, unspecified; Z79.01 Long term (current) use of anticoagulants
CPT/HCPCS: 36415; 85610

== ENCOUNTER 2021-04-10 09:31 | Outpatient (CLI) | payer MEDICARE ==
[2021-04-10 09:52] LABS: INR-International Normal Ratio 2.4; Prothrombin Time 26.8 sec (12.0-14.7)
== END 2021-04-10 09:32 | disposition home or self-care (01) ==
LOC: MADLAB 09:31
PROVIDERS: ATTEND Family Medicine
DX: Z51.81 Encounter for therapeutic drug level monitoring (principal); E78.3 Hyperchylomicronemia; D64.9 Anemia, unspecified; Z79.01 Long term (current) use of anticoagulants
CPT/HCPCS: 36415; 85610

== ENCOUNTER 2021-04-17 10:47 | Outpatient (CLI) | payer MEDICARE ==
[2021-04-17 11:42] LABS: INR-International Normal Ratio 2.7; Prothrombin Time 29.1 sec (12.0-14.7)
== END 2021-04-17 10:48 | disposition home or self-care (01) ==
LOC: MADLAB 10:47
PROVIDERS: ATTEND Family Medicine
DX: Z51.81 Encounter for therapeutic drug level monitoring (principal); Z79.01 Long term (current) use of anticoagulants
CPT/HCPCS: 36415; 85610

== ENCOUNTER 2021-05-06 09:59 | Outpatient (CLI) | payer MEDICARE ==
[2021-05-06 10:27] LABS: #Basophils 0.1 thou/uL (0.0-0.2); #Eosinphils 0.3 thou/uL (0.0-0.7); #Lymphocytes 1.3 thou/uL (1.20-3.40); #Monocytes 0.9 thou/uL (0.11-0.59); #Neutrophils 5.9 thou/uL (1.40-6.50); %Basophils 1.1 % (0.0-1.0); %Eosinophils 3.2 % (0.0-10.0); %Lymphocytes 15.6 % (21.0-51.0); %Monocytes 10.1 % (0.0-10.0); Hemoglobin 13.3 g/dL (14.0-18.0); Mean Corpuscular HGB CONC 32.7 g/dL (32.0-36.0); Mean Corpuscular Hemoglobin 29.9 pg (27.0-31.0); Mean Corpuscular Volume 91.5 fL (78.0-98.0); Mean Platelet Volume 6.9 fL (7.4-10.4); Platelet Count 244 thou/uL (130-400); RBC Distribution Width 11.9 % (11.5-14.5); Red Blood Cell (RBC) Count 4.43 mill/uL (4.70-6.10); White Blood Cell (WBC) Count 8.4 thou/uL (4.8-10.8)
[2021-05-06 10:31] LABS: INR-International Normal Ratio 3.6; Prothrombin Time 36.8 sec (12.0-14.7)
[2021-05-06 10:40] LABS: ALT (SGPT) 16 U/L (8-55); AST (SGOT) 20 U/L (5-34); Albumin 4.3 g/dL (3.4-4.8); Alkaline Phosphatase 70 U/L (40-110); Anion Gap 13 mmol/L (10-20); BUN (Urea Nitrogen) 15 mg/dL (8.4-25.7); Bilirubin, Total 0.5 mg/dL (0.2-1.2); Calc. Creatinine Clearance 0 mL/min (70-130); Carbon Dioxide 25 mmol/L (23-31); Chloride 101 mmol/L (98-107); Globulin 2.8 g/dL (2.4-3.5); Glucose 101 mg/dL (83-110); Potassium 4.4 mmol/L (3.5-5.1); Protein, Total 7.1 g/dL (5.8-8.1); Sodium 135 mmol/L (136-145)
== END 2021-05-06 10:00 | disposition home or self-care (01) ==
LOC: MADLAB 09:59
PROVIDERS: ATTEND Family Medicine
DX: Z51.81 Encounter for therapeutic drug level monitoring (principal); D64.9 Anemia, unspecified; I10 Essential (primary) hypertension; Z79.01 Long term (current) use of anticoagulants
CPT/HCPCS: 36415; 80053; 82728; 85025; 85610

== ENCOUNTER 2021-05-08 10:19 | Outpatient (CLI) | payer MEDICARE ==
[2021-05-08 10:40] LABS: INR-International Normal Ratio 2.2; Prothrombin Time 24.6 sec (12.0-14.7)
== END 2021-05-08 10:20 | disposition home or self-care (01) ==
LOC: MADLAB 10:19
PROVIDERS: ATTEND Family Medicine
DX: Z51.81 Encounter for therapeutic drug level monitoring (principal); Z79.01 Long term (current) use of anticoagulants
CPT/HCPCS: 36415; 85610

== ENCOUNTER 2021-05-22 12:55 | Outpatient (CLI) | payer MEDICARE ==
[2021-05-22 13:25] LABS: INR-International Normal Ratio 2.5; Prothrombin Time 27.2 sec (12.0-14.7)
== END 2021-05-22 12:56 | disposition home or self-care (01) ==
LOC: MADLAB 12:55
PROVIDERS: ATTEND Family Medicine
DX: Z51.81 Encounter for therapeutic drug level monitoring (principal); Z79.01 Long term (current) use of anticoagulants
CPT/HCPCS: 36415; 85610

== ENCOUNTER 2021-07-16 09:41 | Outpatient (CLI) | payer MEDICARE ==
[2021-07-16 10:11] LABS: Prothrombin Time 31.8 sec (12.0-14.7)
[2021-07-16 11:40] LABS: ALT (SGPT) 19 U/L (8-55); AST (SGOT) 23 U/L (5-34); Albumin 4.2 g/dL (3.4-4.8); Alkaline Phosphatase 62 U/L (40-110); Anion Gap 15 mmol/L (10-20); BUN (Urea Nitrogen) 15 mg/dL (8.4-25.7); Bilirubin, Direct 0.3 mg/dL (0.1-0.3); Bilirubin, Total 0.7 mg/dL (0.2-1.2); Calc. Creatinine Clearance 0 mL/min (70-130); Calcium 9.4 mg/dL (7.8-10.44); Carbon Dioxide 24 mmol/L (23-31); Cardiac Risk 2.3 (Less than 4.5); Chloride 101 mmol/L (98-107); Cholesterol 130 mg/dl (< 200 Desired); Glucose 97 mg/dL (83-110); HDL Cholesterol 57 mg/dL (>60 Neg Risk); LDL Cholesterol, Calculated 48 mg/dL; Protein, Total 6.9 g/dL (5.8-8.1); Sodium 135 mmol/L (136-145); Triglycerides 127 mg/dL (Less than 150)
== END 2021-07-16 09:42 | disposition home or self-care (01) ==
LOC: MADLAB 09:41
PROVIDERS: ATTEND Family Medicine
DX: Z51.81 Encounter for therapeutic drug level monitoring (principal); I48.0 Paroxysmal atrial fibrillation; E78.2 Mixed hyperlipidemia; I10 Essential (primary) hypertension; Z79.01 Long term (current) use of anticoagulants
CPT/HCPCS: 36415; 80048; 80061; 80076; 85610

== ENCOUNTER 2021-07-29 07:21 | Outpatient (CLI) | payer MEDICARE ==
[2021-07-29 08:31] LABS: INR-International Normal Ratio 2.4; Prothrombin Time 26.6 sec (12.0-14.7)
== END 2021-07-29 07:22 | disposition home or self-care (01) ==
LOC: MADLAB 07:21
PROVIDERS: ATTEND Family Medicine
DX: Z51.81 Encounter for therapeutic drug level monitoring (principal); Z79.01 Long term (current) use of anticoagulants
CPT/HCPCS: 36415; 85610

== ENCOUNTER 2021-08-16 08:21 | Outpatient (CLI) | payer MEDICARE ==
[2021-08-16 08:58] LABS: #Basophils 0.1 thou/uL (0.0-0.2); #Eosinphils 0.2 thou/uL (0.0-0.7); #Lymphocytes 0.9 thou/uL (1.20-3.40); #Monocytes 0.8 thou/uL (0.11-0.59); #Neutrophils 5.5 thou/uL (1.40-6.50); %Basophils 1.9 % (0.0-1.0); %Eosinophils 3.3 % (0.0-10.0); %Lymphocytes 11.6 % (21.0-51.0); %Monocytes 11.1 % (0.0-10.0); %Neutrophils 72.1 % (42.0-75.0); Hemoglobin 11.8 g/dL (14.0-18.0); Mean Corpuscular HGB CONC 32.2 g/dL (32.0-36.0); Mean Corpuscular Hemoglobin 29.6 pg (27.0-31.0); Mean Corpuscular Volume 92.1 fL (78.0-98.0); Mean Platelet Volume 8.1 fL (7.4-10.4); Platelet Count 217 thou/uL (130-400); RBC Distribution Width 13.9 % (11.5-14.5); White Blood Cell (WBC) Count 7.6 thou/uL (4.8-10.8)
[2021-08-16 09:09] LABS: ALT (SGPT) 21 U/L (8-55); AST (SGOT) 23 U/L (5-34); Albumin 4.1 g/dL (3.4-4.8); Alkaline Phosphatase 63 U/L (40-110); Anion Gap 17 mmol/L (10-20); BUN (Urea Nitrogen) 22 mg/dL (8.4-25.7); Bilirubin, Total 0.5 mg/dL (0.2-1.2); Calc. Creatinine Clearance 0 mL/min (70-130); Calcium 9.2 mg/dL (7.8-10.44); Carbon Dioxide 21 mmol/L (23-31); Chloride 102 mmol/L (98-107); Globulin 2.8 g/dL (2.4-3.5); Glucose 107 mg/dL (83-110); Potassium 4.1 mmol/L (3.5-5.1); Protein, Total 6.9 g/dL (5.8-8.1); Sodium 136 mmol/L (136-145)
[2021-08-16 09:11] LABS: INR-International Normal Ratio 3.4; Prothrombin Time 34.7 sec (12.0-14.7)
== END 2021-08-16 08:22 | disposition home or self-care (01) ==
LOC: MADLAB 08:21
PROVIDERS: ATTEND Family Medicine
DX: Z51.81 Encounter for therapeutic drug level monitoring (principal); Z79.01 Long term (current) use of anticoagulants; I10 Essential (primary) hypertension; D64.9 Anemia, unspecified
CPT/HCPCS: 36415; 80053; 82728; 85025; 85610

== ENCOUNTER 2021-08-22 10:16 | Outpatient (CLI) | payer MEDICARE ==
[2021-08-22 10:54] LABS: INR-International Normal Ratio 2.7; Prothrombin Time 29.3 sec (12.0-14.7)
== END 2021-08-22 10:17 | disposition home or self-care (01) ==
LOC: MADLAB 10:16
PROVIDERS: ATTEND Family Medicine
DX: Z51.81 Encounter for therapeutic drug level monitoring (principal); Z79.01 Long term (current) use of anticoagulants
CPT/HCPCS: 36415; 85610

== ENCOUNTER 2021-09-19 13:56 | Outpatient (CLI) | payer MEDICARE ==
[2021-09-19 14:24] LABS: INR-International Normal Ratio 2.9; Prothrombin Time 30.7 sec (12.0-14.7)
== END 2021-09-19 13:57 | disposition home or self-care (01) ==
LOC: MADLAB 13:56
PROVIDERS: ATTEND Family Medicine
DX: Z51.81 Encounter for therapeutic drug level monitoring (principal); Z79.01 Long term (current) use of anticoagulants
CPT/HCPCS: 36415; 85610

== ENCOUNTER 2021-10-21 10:04 | Outpatient (CLI) | payer MEDICARE ==
[2021-10-21 10:29] LABS: INR-International Normal Ratio 3.2; Prothrombin Time 33.2 sec (12.0-14.7)
== END 2021-10-21 10:05 | disposition home or self-care (01) ==
LOC: MADLAB 10:04
PROVIDERS: ATTEND Family Medicine
DX: Z51.81 Encounter for therapeutic drug level monitoring (principal); Z79.01 Long term (current) use of anticoagulants
CPT/HCPCS: 36415; 85610

== ENCOUNTER 2021-10-28 10:01 | Outpatient (CLI) | payer MEDICARE ==
[2021-10-28 10:54] LABS: INR-International Normal Ratio 2.9
== END 2021-10-28 10:02 | disposition home or self-care (01) ==
LOC: MADLAB 10:01
PROVIDERS: ATTEND Family Medicine
DX: Z51.81 Encounter for therapeutic drug level monitoring (principal); Z79.01 Long term (current) use of anticoagulants
CPT/HCPCS: 36415; 85610

== ENCOUNTER 2021-11-11 15:39 | Emergency (ER) | payer MEDICARE ==
[2021-11-11] MEDS ORDERED: Acetaminophen 500 MG TAB ONE (15:46)
[2021-11-11] MEDS ORDERED: Sodium Chloride 0.9% 250 ML 250 ML ONE ×3 (16:03→17:37)
[2021-11-11] MEDS ORDERED: methylPREDNISolone Sod Succ/PF 125 MG/2 ML VIAL ONE (16:03)
[2021-11-11 16:19] LABS: Prothrombin Time 41.1 sec (12.0-14.7)
[2021-11-11 16:28] LABS: ALT (SGPT) 21 U/L (8-55); AST (SGOT) 21 U/L (5-34); Albumin 3.6 g/dL (3.4-4.8); Alkaline Phosphatase 103 U/L (40-110); Anion Gap 20 mmol/L (10-20); BUN (Urea Nitrogen) 36 mg/dL (8.4-25.7); Base Excess-Venous -3.3 mmol/L (-2.0 to 3.0); Bicarbonate (HCO3v) 20.7 mmol/L (22.0-28.0); Bilirubin, Total 0.6 mg/dL (0.2-1.2); CO2 Tension (PvCO2) 33.2 mmHg (42.0-51.0); Calc. Creatinine Clearance 0 mL/min (70-130); Calcium 9.1 mg/dL (7.8-10.44); Calcium, Ionized 1.08 mmol/L (1.15-1.33); Carbon Dioxide 19 mmol/L (23-31); Chloride 88 mmol/L (98-107); Chloride 89 mmol/L (98-107); Estimated GFR 43; Globulin 3.3 g/dL (2.4-3.5); Glucose 116 mg/dL (83-110); Hemoglobin - Calc 12.3 g/dL (14.0-18.0); Lipase 204 U/L (8-78); Magnesium 2.5 mg/dL (1.6-2.6); Potassium 4.4 mmol/L (3.5-5.1); Protein, Total 6.9 g/dL (5.8-8.1); Sodium 122 mmol/L (138-145); Sodium 124 mmol/L (136-145); T. Carbon Dioxide 21.8 mmol/L (22.0-28.0); vO2 Saturation-calc 77.7 % (60.0-85.0)
[2021-11-11 16:31] LABS: Band 2 % (5-11); Hemoglobin 9.6 g/dL (14.0-18.0); Hypochromia SLIGHT = 6-15 cells (100X) (0-5/hpf); Lymphocytes 6 % (21-51); MDiff Complete? YES; Mean Corpuscular HGB CONC 32.8 g/dL (32.0-36.0); Mean Corpuscular Volume 88.5 fL (78.0-98.0); Mean Platelet Volume 8.2 fL (7.4-10.4); Monocytes 6 % (0-10); Neutrophil 86 % (42-75); Platelet Count 299 thou/uL (130-400); Platelet Morphology Comment Appears Adequate; RBC Distribution Width 11.5 % (11.5-14.5); Red Blood Cell (RBC) Count 3.31 mill/uL (4.70-6.10)
[2021-11-11 16:34] LABS: INR-International Normal Ratio 4.2
[2021-11-11 16:53] LABS: SARS-CoV-2 NAA Rapid Test Not Detected (NotDetected)
[2021-11-11 16:54] LABS: CKMB 4.9 ng/mL (0-6.6)
[2021-11-11] MEDS ORDERED: Aspirin Chewable 81 MG TAB ONE (17:08)
[2021-11-11] MEDS ORDERED: Cefepime 2 GM VIAL ONE (17:08)
[2021-11-11] MEDS ORDERED: Sodium Chloride 0.9% 100 ML ONE (17:08)
[2021-11-11 17:17] LABS: Bilirubin Negative (Negative); Blood, Urine Small (Negative); Glucose, Urine (Dipstick) Negative (Negative); Ketone, Urine Trace mg/dL (Negative); Leukocyte Negative (Negative); Nitrite Negative (Negative); Protein, Urine (Dipstick) Negative (Neg-Trace); Urobilinogen 0.2 mg/dL (Less than 2)
[2021-11-11 17:23] LABS: Clarity Hazy (Clear)
[2021-11-11 17:24] LABS: Bacteria/HPF 1+ HPF (None Seen); Squamous Epithelial 0-3 HPF (0-3); WBC/HPF 0-3 HPF (0-3)
== END 2021-11-11 17:55 | disposition short-term general hospital (02) ==
LOC: MADERS 15:39
DX: I11.0 Hypertensive heart disease with heart failure (principal); I50.9 Heart failure, unspecified; R65.20 Severe sepsis without septic shock; N17.9 Acute kidney failure, unspecified; J44.1 Chronic obstructive pulmonary disease with (acute) exacerbation; I21.4 Non-ST elevation (NSTEMI) myocardial infarction; K85.90 Acute pancreatitis without necrosis or infection, unspecified; E87.1 Hypo-osmolality and hyponatremia; R79.1 Abnormal coagulation profile; I25.10 Atherosclerotic heart disease of native coronary artery without angina pectoris; E78.5 Hyperlipidemia, unspecified; Z20.822 Contact with and (suspected) exposure to COVID-19; Z95.0 Presence of cardiac pacemaker; Z87.891 Personal history of nicotine dependence; Z79.82 Long term (current) use of aspirin; Z79.01 Long term (current) use of anticoagulants; Z79.899 Other long term (current) drug therapy
CPT/HCPCS: 71045; 80053; 82330; 82435; 82553; 82803; 83605; 83690; 83735; 83880; 84132; 84295; 84484; 85014; 85025; 85610; 87040; 87077; 87086; 87149 ×2; 87186; 87804 ×2; 93005; U0002; 51701; 81003; 81015; 82274; 96365; 96368; 96375; J0692; J2930; J3370; J3490; J7050; J7620

== ENCOUNTER 2022-02-07 14:11 | Inpatient (IN) | payer MEDICARE ==
[2022-02-08] MEDS ORDERED: Ondansetron ODT 4 MG TAB PO PRN (10:36)
[2022-02-08] MEDS ORDERED: Bisacodyl 10 MG SUPP PR PRN (10:38)
[2022-02-08] MEDS ORDERED: Sodium Chloride 0.65% Nasal 44 ML BOT EA NARE PRN (10:38)
[2022-02-08] MEDS: Lantiseptic Ointment 130 GM JAR TOP PRN (11:44)
[2022-02-08] MEDS: Acetaminophen 500 MG TAB PO SCH ×3 (11:44→23:15)
[2022-02-08] MEDS ORDERED: Furosemide 40 MG TAB PO SCH (11:45)
[2022-02-08] MEDS ORDERED: AMOXicillin 250 MG CAP PO SCH (11:45)
[2022-02-08] MEDS: Famotidine 20 MG TAB PO SCH (20:48)
[2022-02-08] MEDS: Tamsulosin HCl 0.4 MG CAP PO SCH (20:48)
[2022-02-08] MEDS: Atorvastatin Calcium 40 MG TAB PO SCH (20:48)
[2022-02-08] MEDS: Carvedilol 6.25 MG TAB PO SCH (20:48)
[2022-02-08] MEDS: Apixaban 2.5 MG TAB PO SCH (20:49)
[2022-02-08] MEDS: AMOXicillin 250 MG CAP PO SCH (20:49)
[2022-02-08] MEDS: Budesonide 0.5 MG/2 ML NEB NEB SCH (20:52)
[2022-02-08] MEDS: Arformoterol 15 MCG/2 ML NEB NEB SCH (20:53)
[2022-02-08] MEDS: traMADol HCl 50 MG TAB PO PRN (21:03)
[2022-02-08] MEDS: Polyethylene Glycol 3350 17 GM Packet PO SCH (21:04)
[2022-02-08] MEDS: Senokot S 8.6-50 MG TAB PO SCH (21:04)
[2022-02-09] MEDS: Acetaminophen 500 MG TAB PO SCH ×3 (05:42→20:20)
[2022-02-09 05:46] LABS: #Basophils 0.1 thou/uL (0.0-0.2); #Eosinphils 0.6 thou/uL (0.0-0.7); #Lymphocytes 0.7 thou/uL (1.20-3.40); #Monocytes 0.9 thou/uL (0.11-0.59); #Neutrophils 5.5 thou/uL (1.40-6.50); %Basophils 1.2 % (0.0-1.0); %Eosinophils 7.2 % (0.0-10.0); %Lymphocytes 8.8 % (21.0-51.0); %Monocytes 12.1 % (0.0-10.0); %Neutrophils 70.8 % (42.0-75.0); Anisocytosis SLIGHT = 6-15 cells (100X) (0-5/hpf); Hemoglobin 8.1 g/dL (14.0-18.0); MDiff Complete? YES; Mean Corpuscular HGB CONC 32.7 g/dL (32.0-36.0); Mean Corpuscular Hemoglobin 31.1 pg (27.0-31.0); Mean Corpuscular Volume 95.1 fl (78.0-98.0); Mean Platelet Volume 6.3 fL (7.4-10.4); Platelet Count 216 10x3/uL (130-400); Platelet Morphology Comment Appears Adequate; RBC Distribution Width 18.6 % (11.5-14.5); White Blood Cell (WBC) Count 7.7 10x3/uL (4.8-10.8)
[2022-02-09] MEDS ORDERED: Furosemide 40 MG TAB PO SCH (07:30)
[2022-02-09] MEDS: AMOXicillin 250 MG CAP PO SCH ×2 (08:57→20:18)
[2022-02-09] MEDS: Spironolactone 25 MG TAB PO SCH (08:58)
[2022-02-09] MEDS: Aspirin Chewable 81 MG TAB PO SCH (08:58)
[2022-02-09] MEDS: Arformoterol 15 MCG/2 ML NEB NEB SCH ×2 (08:58→20:22)
[2022-02-09] MEDS: Famotidine 20 MG TAB PO SCH ×2 (08:58→20:19)
[2022-02-09] MEDS: Potassium Chloride 20 MEQ TAB PO SCH (08:58)
[2022-02-09] MEDS: Apixaban 2.5 MG TAB PO SCH ×2 (08:58→20:18)
[2022-02-09] MEDS: Furosemide 40 MG TAB PO SCH (08:59)
[2022-02-09] MEDS: Carvedilol 6.25 MG TAB PO SCH ×2 (08:59→20:19)
[2022-02-09] MEDS: Polyethylene Glycol 3350 17 GM Packet PO SCH ×2 (08:59→20:26)
[2022-02-09] MEDS: Budesonide 0.5 MG/2 ML NEB NEB SCH ×2 (08:59→20:21)
[2022-02-09] MEDS: Senokot S 8.6-50 MG TAB PO SCH ×2 (09:00→20:26)
[2022-02-09] MEDS: Lantiseptic Ointment 130 GM JAR TOP PRN (09:01)
[2022-02-09] MEDS: traMADol HCl 50 MG TAB PO PRN (09:12)
[2022-02-09] MEDS: Tamsulosin HCl 0.4 MG CAP PO SCH (20:18)
[2022-02-09] MEDS: Atorvastatin Calcium 40 MG TAB PO SCH (20:19)
[2022-02-10] MEDS: Acetaminophen 500 MG TAB PO SCH ×4 (04:24→17:17)
[2022-02-10] MEDS: AMOXicillin 250 MG CAP PO SCH ×2 (08:03→20:10)
[2022-02-10] MEDS: Furosemide 40 MG TAB PO SCH (08:03)
[2022-02-10] MEDS: Aspirin Chewable 81 MG TAB PO SCH (08:03)
[2022-02-10] MEDS: Famotidine 20 MG TAB PO SCH ×2 (08:03→20:10)
[2022-02-10] MEDS: Apixaban 2.5 MG TAB PO SCH ×2 (08:04→20:14)
[2022-02-10] MEDS: Potassium Chloride 20 MEQ TAB PO SCH (08:04)
[2022-02-10] MEDS: Carvedilol 6.25 MG TAB PO SCH ×2 (08:04→20:10)
[2022-02-10] MEDS: Spironolactone 25 MG TAB PO SCH (08:04)
[2022-02-10] MEDS: Polyethylene Glycol 3350 17 GM Packet PO SCH ×2 (08:04→20:09)
[2022-02-10] MEDS: Senokot S 8.6-50 MG TAB PO SCH ×2 (08:04→20:10)
[2022-02-10] MEDS: Budesonide 0.5 MG/2 ML NEB NEB SCH ×2 (08:05→20:17)
[2022-02-10] MEDS: Arformoterol 15 MCG/2 ML NEB NEB SCH ×2 (08:05→20:20)
[2022-02-10] MEDS: Lantiseptic Ointment 130 GM JAR TOP PRN ×2 (08:10→20:16)
[2022-02-10] MEDS: Atorvastatin Calcium 40 MG TAB PO SCH (20:10)
[2022-02-10] MEDS: Tamsulosin HCl 0.4 MG CAP PO SCH (20:10)
[2022-02-10] MEDS: traMADol HCl 50 MG TAB PO PRN (20:13)
[2022-02-11] MEDS: Acetaminophen 500 MG TAB PO SCH ×4 (00:01→17:36)
[2022-02-11 05:37] LABS: Anion Gap 14 mmol/L (10-20); BUN (Urea Nitrogen) 21 mg/dL (8.4-25.7); Calc. Creatinine Clearance 64 mL/min (70-130); Calcium 8.7 mg/dL (7.8-10.44); Carbon Dioxide 24 mmol/L (23-31); Chloride 102 mmol/L (98-107); Estimated GFR 69; Glucose 90 mg/dL (83-110); Potassium 4.1 mmol/L (3.5-5.1); Sodium 136 mmol/L (136-145)
[2022-02-11] MEDS: Budesonide 0.5 MG/2 ML NEB NEB SCH ×2 (08:44→20:40)
[2022-02-11] MEDS: Arformoterol 15 MCG/2 ML NEB NEB SCH ×2 (08:44→20:38)
[2022-02-11] MEDS: AMOXicillin 250 MG CAP PO SCH ×2 (08:45→20:38)
[2022-02-11] MEDS: Aspirin Chewable 81 MG TAB PO SCH (08:46)
[2022-02-11] MEDS: Carvedilol 6.25 MG TAB PO SCH ×2 (08:46→20:44)
[2022-02-11] MEDS: Senokot S 8.6-50 MG TAB PO SCH ×2 (08:46→20:40)
[2022-02-11] MEDS: Spironolactone 25 MG TAB PO SCH (08:46)
[2022-02-11] MEDS: Potassium Chloride 20 MEQ TAB PO SCH (08:47)
[2022-02-11] MEDS: Polyethylene Glycol 3350 17 GM Packet PO SCH ×3 (08:47→20:39)
[2022-02-11] MEDS: Apixaban 2.5 MG TAB PO SCH ×2 (08:47→20:40)
[2022-02-11] MEDS: Famotidine 20 MG TAB PO SCH ×2 (08:47→20:40)
[2022-02-11] MEDS: Furosemide 40 MG TAB PO SCH (08:47)
[2022-02-11] MEDS: Tamsulosin HCl 0.4 MG CAP PO SCH (20:39)
[2022-02-11] MEDS: Atorvastatin Calcium 40 MG TAB PO SCH (20:39)
[2022-02-11] MEDS: traMADol HCl 50 MG TAB PO PRN (20:41)
[2022-02-12] MEDS: Acetaminophen 500 MG TAB PO SCH ×5 (00:13→23:58)
[2022-02-12] MEDS: Apixaban 2.5 MG TAB PO SCH ×2 (08:14→20:58)
[2022-02-12] MEDS: Aspirin Chewable 81 MG TAB PO SCH (08:14)
[2022-02-12] MEDS: Potassium Chloride 20 MEQ TAB PO SCH (08:14)
[2022-02-12] MEDS: Spironolactone 25 MG TAB PO SCH (08:14)
[2022-02-12] MEDS: Famotidine 20 MG TAB PO SCH ×2 (08:14→20:58)
[2022-02-12] MEDS: Carvedilol 6.25 MG TAB PO SCH ×2 (08:14→20:59)
[2022-02-12] MEDS: AMOXicillin 250 MG CAP PO SCH ×2 (08:14→20:58)
[2022-02-12] MEDS: Furosemide 40 MG TAB PO SCH (08:14)
[2022-02-12] MEDS: Arformoterol 15 MCG/2 ML NEB NEB SCH ×2 (08:15→20:57)
[2022-02-12] MEDS: Budesonide 0.5 MG/2 ML NEB NEB SCH ×2 (08:15→20:57)
[2022-02-12] MEDS: Polyethylene Glycol 3350 17 GM Packet PO SCH ×2 (08:16→20:57)
[2022-02-12] MEDS: Senokot S 8.6-50 MG TAB PO SCH ×2 (08:16→20:57)
[2022-02-12] MEDS: traMADol HCl 50 MG TAB PO PRN (11:57)
[2022-02-12] MEDS: Atorvastatin Calcium 40 MG TAB PO SCH (20:58)
[2022-02-12] MEDS: Tamsulosin HCl 0.4 MG CAP PO SCH (20:59)
[2022-02-13] MEDS: Acetaminophen 500 MG TAB PO SCH ×4 (05:37→23:16)
[2022-02-13] MEDS: Polyethylene Glycol 3350 17 GM Packet PO SCH ×2 (08:54→21:23)
[2022-02-13] MEDS: Apixaban 2.5 MG TAB PO SCH ×2 (08:55→21:20)
[2022-02-13] MEDS: Furosemide 40 MG TAB PO SCH (08:55)
[2022-02-13] MEDS: Famotidine 20 MG TAB PO SCH ×2 (08:55→21:22)
[2022-02-13] MEDS: Aspirin Chewable 81 MG TAB PO SCH (08:55)
[2022-02-13] MEDS: AMOXicillin 250 MG CAP PO SCH ×2 (08:55→21:20)
[2022-02-13] MEDS: Carvedilol 6.25 MG TAB PO SCH ×2 (08:55→21:20)
[2022-02-13] MEDS: Potassium Chloride 20 MEQ TAB PO SCH (08:55)
[2022-02-13] MEDS: Senokot S 8.6-50 MG TAB PO SCH ×2 (08:55→21:20)
[2022-02-13] MEDS: Arformoterol 15 MCG/2 ML NEB NEB SCH ×2 (08:56→21:25)
[2022-02-13] MEDS: Budesonide 0.5 MG/2 ML NEB NEB SCH ×2 (08:56→21:23)
[2022-02-13] MEDS: Spironolactone 25 MG TAB PO SCH (08:56)
[2022-02-13] MEDS: traMADol HCl 50 MG TAB PO PRN ×2 (17:40→23:17)
[2022-02-13] MEDS: Atorvastatin Calcium 40 MG TAB PO SCH (21:20)
[2022-02-13] MEDS: Tamsulosin HCl 0.4 MG CAP PO SCH (21:20)
[2022-02-14] MEDS: Acetaminophen 500 MG TAB PO SCH ×3 (06:10→17:06)
[2022-02-14] MEDS: AMOXicillin 250 MG CAP PO SCH ×2 (08:20→21:02)
[2022-02-14] MEDS: Apixaban 2.5 MG TAB PO SCH ×2 (08:20→21:03)
[2022-02-14] MEDS: Arformoterol 15 MCG/2 ML NEB NEB SCH ×2 (08:20→21:03)
[2022-02-14] MEDS: Clotrimazole 1% Cream 15 GM TUBE TOP SCH (08:21)
[2022-02-14] MEDS: Carvedilol 6.25 MG TAB PO SCH ×2 (08:21→21:03)
[2022-02-14] MEDS: Budesonide 0.5 MG/2 ML NEB NEB SCH ×2 (08:21→21:03)
[2022-02-14] MEDS: Aspirin Chewable 81 MG TAB PO SCH (08:21)
[2022-02-14] MEDS: Famotidine 20 MG TAB PO SCH ×2 (08:21→21:03)
[2022-02-14] MEDS: Potassium Chloride 20 MEQ TAB PO SCH (08:22)
[2022-02-14] MEDS: Spironolactone 25 MG TAB PO SCH (08:22)
[2022-02-14] MEDS: Lantiseptic Ointment 130 GM JAR TOP PRN (08:22)
[2022-02-14] MEDS: Furosemide 40 MG TAB PO SCH (08:22)
[2022-02-14] MEDS: Polyethylene Glycol 3350 17 GM Packet PO SCH ×2 (08:23→21:04)
[2022-02-14] MEDS: Senokot S 8.6-50 MG TAB PO SCH ×2 (08:23→21:02)
[2022-02-14] MEDS: Tamsulosin HCl 0.4 MG CAP PO SCH (21:02)
[2022-02-14] MEDS: Atorvastatin Calcium 40 MG TAB PO SCH (21:03)
[2022-02-14] MEDS: traMADol HCl 50 MG TAB PO PRN (21:06)
[2022-02-15] MEDS: Acetaminophen 500 MG TAB PO SCH ×4 (00:31→18:31)
[2022-02-15] MEDS: Potassium Chloride 20 MEQ TAB PO SCH (07:55)
[2022-02-15] MEDS: Aspirin Chewable 81 MG TAB PO SCH (07:55)
[2022-02-15] MEDS: Famotidine 20 MG TAB PO SCH ×2 (07:55→20:19)
[2022-02-15] MEDS: Furosemide 40 MG TAB PO SCH (07:55)
[2022-02-15] MEDS: AMOXicillin 250 MG CAP PO SCH ×2 (07:55→20:19)
[2022-02-15] MEDS: Apixaban 2.5 MG TAB PO SCH ×2 (07:55→20:20)
[2022-02-15] MEDS: Carvedilol 6.25 MG TAB PO SCH ×2 (07:56→20:20)
[2022-02-15] MEDS: Budesonide 0.5 MG/2 ML NEB NEB SCH ×2 (07:56→20:19)
[2022-02-15] MEDS: Arformoterol 15 MCG/2 ML NEB NEB SCH ×2 (07:56→20:18)
[2022-02-15] MEDS: Polyethylene Glycol 3350 17 GM Packet PO SCH ×2 (07:57→20:19)
[2022-02-15] MEDS: Clotrimazole 1% Cream 15 GM TUBE TOP SCH (07:57)
[2022-02-15] MEDS: Spironolactone 25 MG TAB PO SCH (07:57)
[2022-02-15] MEDS: Senokot S 8.6-50 MG TAB PO SCH ×2 (07:57→20:20)
[2022-02-15] MEDS: Atorvastatin Calcium 40 MG TAB PO SCH (20:19)
[2022-02-15] MEDS: Tamsulosin HCl 0.4 MG CAP PO SCH (20:20)
[2022-02-15] MEDS: traMADol HCl 50 MG TAB PO PRN (20:25)
[2022-02-16] MEDS: Acetaminophen 500 MG TAB PO SCH ×4 (00:10→18:16)
[2022-02-16] MEDS: Budesonide 0.5 MG/2 ML NEB NEB SCH ×2 (08:48→20:43)
[2022-02-16] MEDS: AMOXicillin 250 MG CAP PO SCH ×2 (08:48→20:38)
[2022-02-16] MEDS: Carvedilol 6.25 MG TAB PO SCH ×2 (08:49→20:38)
[2022-02-16] MEDS: Famotidine 20 MG TAB PO SCH ×2 (08:49→20:40)
[2022-02-16] MEDS: Furosemide 40 MG TAB PO SCH (08:49)
[2022-02-16] MEDS: Aspirin Chewable 81 MG TAB PO SCH (08:49)
[2022-02-16] MEDS: Apixaban 2.5 MG TAB PO SCH ×2 (08:49→20:38)
[2022-02-16] MEDS: Polyethylene Glycol 3350 17 GM Packet PO SCH ×2 (08:49→20:41)
[2022-02-16] MEDS: Potassium Chloride 20 MEQ TAB PO SCH (08:49)
[2022-02-16] MEDS: Senokot S 8.6-50 MG TAB PO SCH ×2 (08:49→20:38)
[2022-02-16] MEDS: Spironolactone 25 MG TAB PO SCH (08:49)
[2022-02-16] MEDS: Clotrimazole 1% Cream 15 GM TUBE TOP SCH (08:50)
[2022-02-16] MEDS: Arformoterol 15 MCG/2 ML NEB NEB SCH ×2 (08:50→20:47)
[2022-02-16] MEDS: Atorvastatin Calcium 40 MG TAB PO SCH (20:38)
[2022-02-16] MEDS: Tamsulosin HCl 0.4 MG CAP PO SCH (20:38)
[2022-02-16] MEDS: traMADol HCl 50 MG TAB PO PRN (20:39)
[2022-02-17] MEDS: Acetaminophen 500 MG TAB PO SCH ×4 (00:52→17:21)
[2022-02-17 08:09] LABS: Anion Gap 13 mmol/L (10-20); BUN (Urea Nitrogen) 22 mg/dL (8.4-25.7); Calc. Creatinine Clearance 68 mL/min (70-130); Carbon Dioxide 26 mmol/L (23-31); Chloride 102 mmol/L (98-107); Estimated GFR 74; Glucose 91 mg/dL (83-110); Potassium 4.8 mmol/L (3.5-5.1); Sodium 136 mmol/L (136-145)
[2022-02-17] MEDS: Carvedilol 6.25 MG TAB PO SCH ×2 (08:27→21:35)
[2022-02-17] MEDS: Aspirin Chewable 81 MG TAB PO SCH (08:27)
[2022-02-17] MEDS: Famotidine 20 MG TAB PO SCH ×2 (08:27→21:35)
[2022-02-17] MEDS: Polyethylene Glycol 3350 17 GM Packet PO SCH ×3 (08:27→21:41)
[2022-02-17] MEDS: Furosemide 40 MG TAB PO SCH (08:27)
[2022-02-17] MEDS: Apixaban 2.5 MG TAB PO SCH ×2 (08:27→21:35)
[2022-02-17] MEDS: Senokot S 8.6-50 MG TAB PO SCH ×3 (08:27→21:41)
[2022-02-17] MEDS: Potassium Chloride 20 MEQ TAB PO SCH (08:27)
[2022-02-17] MEDS: AMOXicillin 250 MG CAP PO SCH ×2 (08:27→21:35)
[2022-02-17] MEDS: Ascorbic Acid 500 mg Chewable Tablet PO SCH (08:28)
[2022-02-17] MEDS: Cholecalciferol (Vitamin D3) 400 UNITS TAB PO SCH (08:29)
[2022-02-17] MEDS: Spironolactone 25 MG TAB PO SCH (08:30)
[2022-02-17] MEDS: Zinc Sulfate 220 MG CAP PO SCH (08:30)
[2022-02-17] MEDS: Arformoterol 15 MCG/2 ML NEB NEB SCH (08:46)
[2022-02-17] MEDS: Clotrimazole 1% Cream 15 GM TUBE TOP SCH (08:46)
[2022-02-17 08:51] LABS: Hemoglobin 7.5 g/dL (14.0-18.0); Mean Corpuscular HGB CONC 31.1 g/dL (32.0-36.0); Mean Corpuscular Volume 96.5 fl (78.0-98.0); Mean Platelet Volume 6.9 fL (7.4-10.4); Platelet Count 231 10x3/uL (130-400); RBC Distribution Width 17.4 % (11.5-14.5); Red Blood Cell (RBC) Count 2.51 mill/uL (4.70-6.10)
[2022-02-17] MEDS ORDERED: Mometasone 100 MCG/PUFF (1 INHALER) INH SCH (09:00)
[2022-02-17 09:34] LABS: MDiff Complete? YES
[2022-02-17 09:37] LABS: Band 8 % (5-11); Lymphocytes 16 % (21-51); Neutrophil 75 % (42-75)
[2022-02-17 09:38] LABS: Monocytes 9 % (0-10)
[2022-02-17 09:39] LABS: Anisocytosis SLIGHT = 6-15 cells (100X) (0-5/hpf)
[2022-02-17 09:40] LABS: Hypochromia SLIGHT = 6-15 cells (100X) (0-5/hpf); Platelet Morphology Comment Appears Adequate
[2022-02-17 09:41] LABS: Polychromasia SLIGHT = 2-3 cells (100X) (0-2/hpf)
[2022-02-17] MEDS: Albuterol 200 PUFF (6.7GM INHALER) INH PRN ×2 (11:28→17:34)
[2022-02-17] MEDS ORDERED: Mometasone/Formoterol 200/5 60 PUFF INH SCH (11:30)
[2022-02-17] MEDS: Ferrous Sulfate 325 MG TAB PO SCH (17:21)
[2022-02-17] MEDS: traMADol HCl 50 MG TAB PO PRN (21:36)
[2022-02-17] MEDS: Atorvastatin Calcium 40 MG TAB PO SCH (21:37)
[2022-02-17] MEDS: Tamsulosin HCl 0.4 MG CAP PO SCH (21:37)
[2022-02-17] MEDS: Mometasone/Formoterol 200/5 60 PUFF INH SCH (21:38)
[2022-02-18] MEDS: Acetaminophen 500 MG TAB PO SCH ×5 (00:47→23:59)
[2022-02-18] MEDS: Albuterol 200 PUFF (6.7GM INHALER) INH PRN ×2 (02:30→08:19)
[2022-02-18 06:09] VITALS: BMI 27.0
[2022-02-18] MEDS: Aspirin Chewable 81 MG TAB PO SCH (08:16)
[2022-02-18] MEDS: Zinc Sulfate 220 MG CAP PO SCH (08:16)
[2022-02-18] MEDS: Carvedilol 6.25 MG TAB PO SCH ×2 (08:17→21:54)
[2022-02-18] MEDS: Potassium Chloride 20 MEQ TAB PO SCH (08:17)
[2022-02-18] MEDS: Senokot S 8.6-50 MG TAB PO SCH ×2 (08:17→22:01)
[2022-02-18] MEDS: Ascorbic Acid 500 mg Chewable Tablet PO SCH (08:17)
[2022-02-18] MEDS: Furosemide 40 MG TAB PO SCH (08:17)
[2022-02-18] MEDS: Ferrous Sulfate 325 MG TAB PO SCH ×2 (08:17→17:00)
[2022-02-18] MEDS: Famotidine 20 MG TAB PO SCH ×2 (08:17→21:54)
[2022-02-18] MEDS: Spironolactone 25 MG TAB PO SCH (08:17)
[2022-02-18] MEDS: Cholecalciferol (Vitamin D3) 400 UNITS TAB PO SCH (08:17)
[2022-02-18] MEDS: AMOXicillin 250 MG CAP PO SCH ×2 (08:17→21:53)
[2022-02-18] MEDS: Apixaban 2.5 MG TAB PO SCH ×2 (08:17→21:54)
[2022-02-18] MEDS: Clotrimazole 1% Cream 15 GM TUBE TOP SCH (08:18)
[2022-02-18] MEDS: Polyethylene Glycol 3350 17 GM Packet PO SCH ×2 (08:18→22:01)
[2022-02-18] MEDS: Lantiseptic Ointment 130 GM JAR TOP PRN (08:18)
[2022-02-18] MEDS: Mometasone/Formoterol 200/5 60 PUFF INH SCH ×2 (08:19→21:58)
[2022-02-18] MEDS: Atorvastatin Calcium 40 MG TAB PO SCH (21:54)
[2022-02-18] MEDS: traMADol HCl 50 MG TAB PO PRN (21:54)
[2022-02-18] MEDS: NIRMATRELVIR 150 MG/RITONAVIR 100 MG PO SCH (21:56)
[2022-02-19] MEDS: Acetaminophen 500 MG TAB PO SCH ×3 (06:03→17:20)
[2022-02-19] MEDS: Polyethylene Glycol 3350 17 GM Packet PO SCH ×2 (07:57→20:51)
[2022-02-19] MEDS: Famotidine 20 MG TAB PO SCH ×2 (07:58→20:46)
[2022-02-19] MEDS: Ascorbic Acid 500 mg Chewable Tablet PO SCH (07:58)
[2022-02-19] MEDS: Apixaban 2.5 MG TAB PO SCH ×2 (07:58→20:47)
[2022-02-19] MEDS: Senokot S 8.6-50 MG TAB PO SCH ×3 (07:58→20:54)
[2022-02-19] MEDS: Cholecalciferol (Vitamin D3) 400 UNITS TAB PO SCH (07:58)
[2022-02-19] MEDS: Zinc Sulfate 220 MG CAP PO SCH (07:58)
[2022-02-19] MEDS: Furosemide 40 MG TAB PO SCH (07:58)
[2022-02-19] MEDS: Spironolactone 25 MG TAB PO SCH (07:59)
[2022-02-19] MEDS: Carvedilol 6.25 MG TAB PO SCH ×2 (07:59→20:47)
[2022-02-19] MEDS: Aspirin Chewable 81 MG TAB PO SCH (07:59)
[2022-02-19] MEDS: AMOXicillin 250 MG CAP PO SCH ×2 (07:59→20:46)
[2022-02-19] MEDS: Potassium Chloride 20 MEQ TAB PO SCH (07:59)
[2022-02-19] MEDS: Clotrimazole 1% Cream 15 GM TUBE TOP SCH (08:00)
[2022-02-19] MEDS: NIRMATRELVIR 150 MG/RITONAVIR 100 MG PO SCH ×2 (08:00→20:48)
[2022-02-19] MEDS: Ferrous Sulfate 325 MG TAB PO SCH ×2 (08:01→17:20)
[2022-02-19] MEDS: Mometasone/Formoterol 200/5 60 PUFF INH SCH ×2 (08:01→21:00)
[2022-02-19] MEDS: Atorvastatin Calcium 40 MG TAB PO SCH (20:47)
[2022-02-19] MEDS: Albuterol 200 PUFF (6.7GM INHALER) INH PRN (20:57)
[2022-02-19] MEDS: Lantiseptic Ointment 130 GM JAR TOP PRN (20:58)
[2022-02-19] MEDS: traMADol HCl 50 MG TAB PO PRN (21:15)
[2022-02-20] MEDS: Acetaminophen 500 MG TAB PO SCH ×4 (00:03→17:22)
[2022-02-20] MEDS: Carvedilol 6.25 MG TAB PO SCH ×2 (08:21→22:05)
[2022-02-20] MEDS: Ascorbic Acid 500 mg Chewable Tablet PO SCH (08:21)
[2022-02-20] MEDS: Senokot S 8.6-50 MG TAB PO SCH ×2 (08:21→22:09)
[2022-02-20] MEDS: Aspirin Chewable 81 MG TAB PO SCH (08:21)
[2022-02-20] MEDS: Zinc Sulfate 220 MG CAP PO SCH (08:21)
[2022-02-20] MEDS: Famotidine 20 MG TAB PO SCH ×2 (08:21→22:04)
[2022-02-20] MEDS: AMOXicillin 250 MG CAP PO SCH ×2 (08:21→22:03)
[2022-02-20] MEDS: Spironolactone 25 MG TAB PO SCH (08:21)
[2022-02-20] MEDS: Furosemide 40 MG TAB PO SCH (08:21)
[2022-02-20] MEDS: Ferrous Sulfate 325 MG TAB PO SCH ×2 (08:21→17:22)
[2022-02-20] MEDS: Apixaban 2.5 MG TAB PO SCH ×2 (08:21→22:04)
[2022-02-20] MEDS: Cholecalciferol (Vitamin D3) 400 UNITS TAB PO SCH (08:22)
[2022-02-20] MEDS: NIRMATRELVIR 150 MG/RITONAVIR 100 MG PO SCH ×2 (08:22→22:08)
[2022-02-20] MEDS: Clotrimazole 1% Cream 15 GM TUBE TOP SCH (08:23)
[2022-02-20] MEDS: Mometasone/Formoterol 200/5 60 PUFF INH SCH ×2 (08:23→22:09)
[2022-02-20] MEDS: Polyethylene Glycol 3350 17 GM Packet PO SCH ×2 (08:29→22:07)
[2022-02-20] MEDS: Potassium Chloride 20 MEQ TAB PO SCH (08:30)
[2022-02-20] MEDS: Atorvastatin Calcium 40 MG TAB PO SCH (22:04)
[2022-02-20] MEDS: traMADol HCl 50 MG TAB PO PRN (22:11)
[2022-02-21] MEDS: Acetaminophen 500 MG TAB PO SCH ×2 (00:52→09:20)
[2022-02-21 06:41] LABS: Hemoglobin 7.8 g/dL (14.0-18.0); Mean Corpuscular HGB CONC 31.2 g/dL (32.0-36.0); Mean Corpuscular Hemoglobin 30.8 pg (27.0-31.0); Mean Corpuscular Volume 98.8 fl (78.0-98.0); Mean Platelet Volume 6.8 fL (7.4-10.4); Platelet Count 249 10x3/uL (130-400); RBC Distribution Width 19.5 % (11.5-14.5); Red Blood Cell (RBC) Count 2.52 mill/uL (4.70-6.10); White Blood Cell (WBC) Count 9.4 10x3/uL (4.8-10.8)
[2022-02-21 08:29] VITALS: BP 103/62; TEMP 98.6
[2022-02-21] MEDS: Aspirin Chewable 81 MG TAB PO SCH (09:21)
[2022-02-21] MEDS: Polyethylene Glycol 3350 17 GM Packet PO SCH (09:21)
[2022-02-21] MEDS: Carvedilol 6.25 MG TAB PO SCH (09:21)
[2022-02-21] MEDS: Zinc Sulfate 220 MG CAP PO SCH (09:21)
[2022-02-21] MEDS: Ferrous Sulfate 325 MG TAB PO SCH (09:21)
[2022-02-21] MEDS: AMOXicillin 250 MG CAP PO SCH (09:21)
[2022-02-21] MEDS: Ascorbic Acid 500 mg Chewable Tablet PO SCH (09:22)
[2022-02-21] MEDS: Apixaban 2.5 MG TAB PO SCH (09:22)
[2022-02-21] MEDS: Potassium Chloride 20 MEQ TAB PO SCH (09:22)
[2022-02-21] MEDS: Senokot S 8.6-50 MG TAB PO SCH (09:22)
[2022-02-21] MEDS: Spironolactone 25 MG TAB PO SCH (09:22)
[2022-02-21] MEDS: Famotidine 20 MG TAB PO SCH (09:22)
[2022-02-21] MEDS: Cholecalciferol (Vitamin D3) 400 UNITS TAB PO SCH (09:22)
[2022-02-21] MEDS: Furosemide 40 MG TAB PO SCH (09:22)
[2022-02-21] MEDS: Mometasone/Formoterol 200/5 60 PUFF INH SCH (09:24)
[2022-02-21] MEDS: Clotrimazole 1% Cream 15 GM TUBE TOP SCH (09:24)
[2022-02-21] MEDS: NIRMATRELVIR 150 MG/RITONAVIR 100 MG PO SCH (09:27)
[2022-02-23] MEDS ORDERED: Tamsulosin HCl 0.4 MG CAP PO SCH (21:00)
== END 2022-02-21 12:57 | disposition home or self-care (01) | DRG 947 ==
LOC: MADMS 02-08 00:01
PROVIDERS: ADMIT Family Medicine; ATTEND Family Medicine
PROC: 8E0ZXY6 Isolation (ICD-10-PCS; principal; 2022-02-16)
DX: R53.81 Other malaise (principal); J96.01 Acute respiratory failure with hypoxia; U07.1 COVID-19; I13.0 Hypertensive heart and chronic kidney disease with heart failure and stage 1 through stage 4 chronic kidney disease, or unspecified chronic kidney disease; I50.42 Chronic combined systolic (congestive) and diastolic (congestive) heart failure; J98.11 Atelectasis; J90 Pleural effusion, not elsewhere classified; D62 Acute posthemorrhagic anemia; R53.1 Weakness; Z20.822 Contact with and (suspected) exposure to COVID-19; Z66 Do not resuscitate; I25.10 Atherosclerotic heart disease of native coronary artery without angina pectoris; J44.9 Chronic obstructive pulmonary disease, unspecified; I48.91 Unspecified atrial fibrillation; I25.5 Ischemic cardiomyopathy; N18.9 Chronic kidney disease, unspecified; G47.00 Insomnia, unspecified; Z88.2 Allergy status to sulfonamides; Z95.2 Presence of prosthetic heart valve; Z79.01 Long term (current) use of anticoagulants; Z88.8 Allergy status to other drugs, medicaments and biological substances; Z79.82 Long term (current) use of aspirin; Z79.899 Other long term (current) drug therapy; Z95.1 Presence of aortocoronary bypass graft; Z95.0 Presence of cardiac pacemaker; Z87.891 Personal history of nicotine dependence; Z83.3 Family history of diabetes mellitus; Z99.81 Dependence on supplemental oxygen
CPT/HCPCS: 36415; 71045; 71046; 71250; 80048; 85025; 85027; 94664; J7620; J7626; Q0162; U0003; U0005

== ENCOUNTER 2022-04-04 11:39 | Outpatient (CLI) | payer MEDICARE | END 2022-04-04 11:40 | disposition home or self-care (01) | LOC: MADRAD 11:39 | PROVIDERS: ATTEND Family Medicine | DX: J06.9 Acute upper respiratory infection, unspecified (principal); R06.02 Shortness of breath | CPT/HCPCS: 71046 ==

== ENCOUNTER 2022-06-03 09:36 | Outpatient (CLI) | payer MEDICARE ==
[2022-06-03 10:23] LABS: ALT (SGPT) 17 U/L (8-55); AST (SGOT) 16 U/L (5-34); Albumin 3.8 g/dL (3.4-4.8); Alkaline Phosphatase 150 U/L (40-110); Anion Gap 14 mmol/L (10-20); BUN (Urea Nitrogen) 27 mg/dL (8.4-25.7); Bilirubin, Total 0.7 mg/dL (0.2-1.2); Calc. Creatinine Clearance 0 mL/min (70-130); Calcium 9.3 mg/dL (7.8-10.44); Carbon Dioxide 23 mmol/L (23-31); Cardiac Risk 1.9 (Less than 4.5); Chloride 104 mmol/L (98-107); Cholesterol 69 mg/dl (< 200 Desired); Estimated GFR 49; Globulin 2.7 g/dL (2.4-3.5); Glucose 92 mg/dL (83-110); HDL Cholesterol 37 mg/dL (>60 Neg Risk); LDL Cholesterol, Calculated 23 mg/dL; Potassium 4.3 mmol/L (3.5-5.1); Protein, Total 6.5 g/dL (5.8-8.1); Sodium 137 mmol/L (136-145); Triglycerides 44 mg/dL (Less than 150)
[2022-06-03 16:32] LABS: #Eosinphils 0.3 thou/uL (0.0-0.7); #Lymphocytes 0.7 thou/uL (1.20-3.40); #Monocytes 0.8 thou/uL (0.11-0.59); #Neutrophils 4.5 thou/uL (1.40-6.50); %Basophils 0.1 % (0.0-1.0); %Eosinophils 4.2 % (0.0-10.0); %Lymphocytes 11.6 % (21.0-51.0); %Monocytes 12.9 % (0.0-10.0); %Neutrophils 71.2 % (42.0-75.0); Hemoglobin 9.7 g/dL (14.0-18.0); Mean Corpuscular HGB CONC 30.9 g/dL (32.0-36.0); Mean Corpuscular Hemoglobin 28.9 pg (27.0-31.0); Mean Corpuscular Volume 93.6 fl (78.0-98.0); Mean Platelet Volume 7.9 fL (7.4-10.4); Platelet Count 236 10x3/uL (130-400); RBC Distribution Width 15.7 % (11.5-14.5); Red Blood Cell (RBC) Count 3.35 mill/uL (4.70-6.10); White Blood Cell (WBC) Count 6.4 10x3/uL (4.8-10.8)
== END 2022-06-03 09:37 | disposition home or self-care (01) ==
LOC: MADLAB 09:36
PROVIDERS: ATTEND Family Medicine
DX: I11.0 Hypertensive heart disease with heart failure (principal); R06.02 Shortness of breath; D64.9 Anemia, unspecified; J90 Pleural effusion, not elsewhere classified
CPT/HCPCS: 36415; 71046; 80053; 80061; 82728; 83880; 85025

== ENCOUNTER 2025-02-08 12:56 | Outpatient (CLI) | payer MEDICARE ==
[2025-02-08 13:44] LABS: Anion Gap 16 mmol/L (10-20); BUN (Urea Nitrogen) 52 mg/dL (8.4-25.7); Calc. Creatinine Clearance 0 mL/min (70-130); Calcium 9.9 mg/dL (7.8-10.44); Carbon Dioxide 22 mmol/L (23-31); Chloride 102 mmol/L (98-107); Glucose 107 mg/dL (83-110); Potassium 4.3 mmol/L (3.5-5.1); Sodium 136 mmol/L (136-145)
== END 2025-02-08 12:57 | disposition home or self-care (01) ==
LOC: MADLAB 12:56
PROVIDERS: ATTEND Internal Medicine Cardiovascular Disease
DX: E78.2 Mixed hyperlipidemia (principal)
CPT/HCPCS: 36415; 80048; 84443